=== PATIENT | female | born 1945 | race Caucasian/White ===

== ENCOUNTER → 2023-09-20 14:21 | Outpatient (REF) | payer MEDICARE, OTHER, SELFPAY | LOC: RAD 14:21 | PROVIDERS: ATTENDING PHYSICIAN Nurse Practitioner; FAMILY PHYSICIAN Student in an Organized Health Care Education/Training Program | DX: N28.1 Cyst of kidney, acquired (principal) | CPT/HCPCS: 76770 ==

== ENCOUNTER 2024-03-24 07:47 | Emergency (ER) | payer MEDICARE, OTHER, SELFPAY ==
[2024-03-24] VITALS (7 sets, daily range): BP systolic 116–174; BP diastolic 46–100; BMI 43.2
[2024-03-24 08:12] LABS: % Basophils 0.7 % (0-2); % Eosinophils 2.2 % (0-6); % Immature Granulocytes 0.6 % (0-0.5); % Lymphocytes 31.9 % (20.5-51.1); % Monocytes 6.1 % (1.7-9.3); % Neutrophils 58.5 % (42.2-75.2); Absolute Basophils 0.1 10^3/uL (0-0.2); Absolute Eosinophils 0.2 10^3/uL (0-0.7); Absolute Lymphocytes 2.2 10^3/uL (1.2-3.4); Absolute Monocytes 0.4 10^3/uL (0.1-0.6); Hematocrit 34.5 % (37.0-47.0); Hemoglobin 11.1 g/dL (12.0-16.0); Mean Corp Hgb Conc. 32.2 g/dL (33.0-37.0); Mean Corpuscular Hgb 28.5 pg (27.0-31.0); Mean Corpuscular Volume 88.7 fL (81.0-99.0); Mean Platelet Volume 9.1 fL (7.4-10.4); Nucleated Red Blood Cells % 0 %; Platelet Count 220 10^3/uL (130-400); Red Blood Cell Count 3.89 10^6/uL (4.20-5.40); White Blood Cell Count 6.9 10^3/uL (4.8-10.8)
[2024-03-24 08:33] LABS: ALT (SGPT) 17 U/L (0-35); AST (SGOT) 23 U/L (14-36); Albumin 4.5 g/dl (3.5-5.0); Alkaline Phosphatase 65 U/L (38-126); Blood Urea Nitrogen 40 mg/dl (7-17); Calcium 10.2 mg/dl (8.4-10.2); Carbon Dioxide 22 mmol/L (22-30); Chloride 106 mmol/L (98-107); Glucose 198 mg/dl (70-99); Potassium 5.3 mmol/L (3.5-5.1); Sodium 142 mmol/L (135-145); Total Bilirubin 0.3 mg/dl (0.2-1.3); Total Protein 7.1 g/dl (6.3-8.2); eGFR 23.38
[2024-03-24 09:58] LABS: Urine Albumin Trace (Neg - Trace); Urine Bilirubin Negative (Negative); Urine Character Clear (Clear); Urine Color Yellow; Urine Glucose 1+ (Negative); Urine Ketone Negative (Negative); Urine Leukocyte Negative (Negative); Urine Nitrite Negative (Negative); Urine Occult Blood Negative (Negative); Urine Urobilinogen Negative (Neg - 1+)
[2024-03-24] MEDS: ZOFRAN 4 MG IV (10:08)
[2024-03-24] MEDS: DILAUDID 1 MG IV (10:08)
[2024-03-24] MEDS: NSS 500 IV (10:09)
--- NOTE | 2024-03-24 10:22 | ED.GENMED ---
History of Present Illness
General
Chief Complaint: Flank Pain
Source: patient and spouse
Exam Limitations: none
Time Seen by Provider: 03/24/24 08:56
Nursing documentation reviewed up to this point in time: agreed with
History of Present Illness
History of Present Illness:
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
in [place] they never matured apparently never required dialysis she takes tramadol smokes marijuana for her pain, said no fever she did have some nausea and vomiting, no fevers, no hematuria
Past History
Past History
ED Past Medical History: HTN, NIDDM, Renal failure and Other (Chronic renal disease)
ED Past Surgical History: Cholecystectomy
Social History
Tobacco: Non-smoker
Alcohol: None
Drug: Marijuana
Personal:
Living: with family
Employment: Retired
Review of Systems
Review of Systems
All Other Systems: Not applicable
Constitutional: Denies fever or fatigue
ABD/GI: Reports nausea
: Reports flank pain
Phy Exam
Physical Exam
Physical Exam:
Physical Exam
General: no apparent distress, not acutely ill
Neck: No jaundice
Heart: s1/s2 regular rate and rhythm, no murmur. equal radial pulses.
Lungs: no acute respiratory distress. clear bilaterally
Abdomen: Soft obese nontender mild right CVA tenderness
Neuro: alert and oriented. no focal neurological deficits
Skin: no rash
Psychiatric: well kept. interactive and cooperative
Extremities: no edema.
Course
Orders/Labs/Results
Orders:
Orders
03/24/24 08:04
CBC/With Diff [Complete Blood Count/With Diff] Urgent
Comprehensive Metabolic Panel Urgent
03/24/24 08:18
CT Abd/pel Without Iv Or Oral Urgent
Comment:
Reason For Exam: left flank pain
03/24/24 09:30
Urinalysis Reflex To Culture Urgent
Date Specimen was Collected: 03/24/24
Time Specimen was Collected: 09:26
03/24/24 09:56
0.9% Sodium Chloride 500 ml [Nss] 500 ml IV BOLUS
HYDROmorphone [Dilaudid] 1 mg IV NOW STA
Ondansetron Injectable [Zofran] 4 mg IV NOW STA
03/24/24 10:57
Diphenhydramine [Benadryl] 50 mg .ROUTE .STK-MED ONE
03/24/24 11:00
Diphenhydramine [Benadryl] 25 mg IV NOW STA
Abnormal Lab Results
03/24/24 03/24/24
08:04 09:30
RBC 3.89 L 10^6/uL
(4.20-5.40)
Hgb 11.1 L g/dL
(12.0-16.0)
Hct 34.5 L %
(37.0-47.0)
MCHC 32.2 L g/dL
(33.0-37.0)
RDW 16.0 H %
(11.5-14.5)
Immature Gran % 0.6 H %
(0-0.5)
Potassium 5.3 H mmol/L
(3.5-5.1)
BUN 40 H mg/dl
(7-17)
Creatinine 2.1 H mg/dL
(0.6-1.0)
Glucose 198 H mg/dl
(70-99)
Urine Glucose 1+ A
(Negative)
03/24/24 08:04
03/24/24 08:04
Vital Signs
Initial and Last Documented VS:
Initial Vital Signs
Temp Pulse Resp BP Pulse Ox
98 F 71 16 138/100 98
03/24/24 07:51 03/24/24 07:51 03/24/24 07:51 03/24/24 07:51 03/24/24 07:51
Last Documented Vital Signs
Temp Pulse Resp BP Pulse Ox
98 F 65 16 131/69 96
03/24/24 07:51 03/24/24 10:00 03/24/24 10:00 03/24/24 12:00 03/24/24 11:23
*Radiology
Radiology exam reviewed: radiology read reviewed
*Pulse Oximetry
Patient hypoxic: no
*Home Health Manager Interpretation
Rate: normal
Interpretation: normal
Heart Rate: 78
Rhythm: sinus
*Critical Care Note
Total Time (30-74mins, 75-104mins- exclusive of procedures): Not Applicable
Update Note
Update Note:
Update, chronic right flank pain chronic renal sufficiency has had kidney stones, CT noted labs are noted creatinine at the baseline will check urinalysis trigger comfortable obviously no NSAIDs
1230 patient feeling better resting comfortably
ED Attending Note
-
Portions of this chart may have been created with voice recognition software.� Occasional wrong word or��sound alike� substitutions may have occurred due to the inherent limitations of voice recognition software.
Discharge Plan
Departure
Patient Disposition: Home (Routine Discharge)
Date of Disposition: 03/24/24
Time of Disposition: 12:33
Patient with high blood pressure during this ER visit?: No
Condition: Good
Discharge Problem:
CKD (chronic kidney disease), stage IV
Instructions: Flank Pain (DC)
Prescriptions:
New
ondansetron 4 mg tablet,disintegrating
4 mg PO Q8H PRN (Reason: nausea and vomiting) Qty: 14 0RF
No Action
tramadol 50 MG tablet
50 mg PO BID
famotidine 20 MG tablet
20 mg PO DAILY
nitroglycerin 0.4 MG tablet, sublingual
0.4 mg sublingual [id number] PRN (Reason: chest pain)
azelastine 1 SPRAY aerosol,spray
2 spray intranasal BIDPRN PRN (Reason: allergies,congstion)
albuterol sulfate [Ventolin HFA] 90 MCG/PUFF HFA aerosol inhaler
2 puff inhalation Q4HPRN PRN (Reason: wheezing)
loratadine 10 MG tablet
10 mg PO DAILYPRN PRN (Reason: allergies)
liraglutide [Victoza 2-Bud] 0.6 MG/0.1 ML pen injector
1.8 mg SQ DAILY
cyanocobalamin (vitamin B-12) 2,500 MCG tablet
5,000 unit PO DAILY
levothyroxine 137 MCG tablet
137 mcg PO DAILY
bumetanide 2 MG tablet
2 mg PO DAILY
amlodipine 5 MG tablet
5 mg PO DAILY
bisoprolol fumarate 10 MG tablet
10 mg PO DAILY
ropinirole 2 MG tablet
2 mg PO HS
rosuvastatin 20 MG tablet
20 mg PO DAILY
cholecalciferol (vitamin D3) 2,000 UNITS tablet
2,000 units PO DAILY
folic acid 1 MG tablet
1 mg PO DAILY
acetaminophen 325 MG tablet
650 mg PO Q6HPRN PRN (Reason: mild pain/ fever>100.5F) 0RF
ipratropium-albuterol 3 ML solution for nebulization
3 ml inhalation R Q4HPRN PRN (Reason: shortness of breath) 0RF
meropenem 500 MG/10 ML recon soln
500 mg IV Q8H 10 Days Qty: 30 0RF
Rx Instructions:
through 02/25/19 per Infectious Disease
insulin aspart U-100 [Novolog FlexPen U-100 Insulin] 300 UNITS/3 ML insulin pen
4 units SC AC 0RF
insulin detemir U-100 [Levemir U-100 Insulin] 1,000 UNITS/10 ML solution
20 units SC BID@0800,2000 0RF
Referrals:
Racquel Srivastava MD [Family Provider] - Next open appointment
Activity Restrictions/Additional Instructions:
Tylenol or tramadol for pain
Zofran as needed for nausea vomiting
Return to the ER for worsening symptoms
Interventions
Interventions:
*Risk Screen - Suicide Last Done: 03/24/24 07:51
*General Assessment Last Done: 03/24/24 07:51
*Neglect/Abuse Screening Last Done: 03/24/24 07:51
ED- Fall Risk Assessment Last Done: 03/24/24 09:53
*ED COVID-19 Vaccine History Last Done: 03/24/24 09:01
*Nursing Disposition Last Done: 03/24/24 12:56
CA-Vswyeb-Dboflibmgs Assessment Last Done: 03/24/24 09:02
ED-Female Genitourinary Assessment Last Done: 03/24/24 09:50
Discharge Date and Time
Discharge Date/Time: 03/24/24 12:57
Print Language: LIBERIAN
[2024-03-24] MEDS: BENADRYL 25 MG IV (11:01)
== END 2024-03-24 12:57 | disposition home or self-care (01) ==
LOC: EMR 07:47
PROVIDERS: Emergency Medicine; EMERGENCY PHYSICIAN Emergency Medicine; FAMILY PHYSICIAN Student in an Organized Health Care Education/Training Program
DX: R10.9 Unspecified abdominal pain (principal); R11.2 Nausea with vomiting, unspecified; I12.9 Hypertensive chronic kidney disease with stage 1 through stage 4 chronic kidney disease, or unspecified chronic kidney disease; E11.22 Type 2 diabetes mellitus with diabetic chronic kidney disease; N18.4 Chronic kidney disease, stage 4 (severe); Z90.49 Acquired absence of other specified parts of digestive tract
CPT/HCPCS: 99284; 96374; 96375; 96361; 74176; 80053; 81003; 85025

== ENCOUNTER 2024-07-28 07:29 | Outpatient (RCR) | payer MEDICARE, OTHER, SELFPAY | END 2024-07-28 23:59 | disposition home or self-care (01) | LOC: RPT 07:29 | PROVIDERS: ATTENDING PHYSICIAN Nurse Practitioner; FAMILY PHYSICIAN Student in an Organized Health Care Education/Training Program | DX: N81.2 Incomplete uterovaginal prolapse (principal); N81.6 Rectocele; N39.41 Urge incontinence; R35.0 Frequency of micturition; Z73.6 Limitation of activities due to disability; N39.46 Mixed incontinence; M54.50 Low back pain, unspecified; R26.89 Other abnormalities of gait and mobility; Z87.442 Personal history of urinary calculi | CPT/HCPCS: 97163; 97530 ==

== ENCOUNTER 2024-08-08 23:47 | Inpatient (IN) | payer MEDICARE, OTHER, SELFPAY ==
[2024-08-08] VITALS (7 sets, daily range): BP systolic 124–168; BP diastolic 65–84; BMI 39.4
--- NOTE | 2024-08-08 16:52 | ED.GENMED ---
ED Provider Triage
<Clinton Kirkpatrick PA-C - Last Filed: 08/08/24 16:54>
-
Patient seen by provider in Triage?: Seen in Triage
Attestation: A medical screening examination has been initiated by a qualified medical provider. Based on the assessment performed at this time, it has been determined that an emergent medical condition may exist and the patient has been informed
that further medical evaluation and possible additional diagnostic testing may be needed.
HPI: 78-year-old female presents to the emergency department for evaluation of 'pain all over' as well as hyperglycemia noted at urgent care today. She apparently has been fatigued recently and reports this pain all over has been ongoing for the
past 2+ months. Has declined to seek out any primary care evaluations for this. Denies chest pain or difficulty breathing
GENERAL: Alert , in no apparent distress
EYE: No visual abnormalities.
NECK: Trachea midline
ENT: No visible abnormalities.
LUNGS: No acute respiratory distress
NEUROLOGICAL: Alert and oriented
SKIN: Skin intact. No visible changes.
MUSCULOSKELETAL: Moving extremities normally
PSYCH: Normal and appropriate interaction.
This is a medical evaluation conducted in person to initiate diagnostic evaluation and provide initial therapeutics. Please see further documentation by the treating clinician.
History of Present Illness
<Clinton Kirkpatrick PA-C - Last Filed: 08/08/24 16:54>
General
Chief Complaint: Blood Sugar Problem
Time Seen by Provider: 08/08/24 19:46
<Mingo Sloan DO - Last Filed: 08/08/24 23:07>
General
Source: patient
Exam Limitations: none
Nursing documentation reviewed up to this point in time: agreed with
History of Present Illness
History of Present Illness:
Agree with HPI by Michele Kirkpatrick.
Past History
<Clinton Kirkpatrick PA-C - Last Filed: 08/08/24 16:54>
Past History
ED Past Medical History: HTN, NIDDM, Renal failure and Other (Chronic renal disease)
ED Past Surgical History: Cholecystectomy
Social History
Tobacco: Non-smoker
Alcohol: None
Drug: Marijuana
Personal:
Living: with family
Employment: Retired
Review of Systems
<Mingo Sloan DO - Last Filed: 08/08/24 23:07>
Review of Systems
Allergies reviewed?: Yes
All Other Systems: Not applicable
Constitutional: Reports no symptoms
EENT: Reports no symptoms
Respiratory: Reports no symptoms
Cardiac: Reports no symptoms
ABD/GI: Reports no symptoms
: Reports flank pain
Musculoskeletal: Reports no symptoms
Skin: Reports no symptoms
Neurological: Reports no symptoms
Endocrine: Reports no symptoms
Hematologic/Lymphatic: Reports no symptoms
Psychiatric: Reports no symptoms
Phy Exam
<Mingo Sloan DO - Last Filed: 08/08/24 23:07>
Physical Exam
Physical Exam:
Physical Exam
General: afebrile, obese
Neck: supple. no meningeal signs. normal posterior pharynx
Heart: s1/s2 tachycardia, no murmur. equal radial
pulses.
HEENT: Pupils equal round reactive to light, EOMI
Lungs: no acute respiratory distress. left side rhonchi
Abdomen: normal bowel sounds. not tender. no CVAT
Neuro: alert and oriented. no focal neurological deficits cranial nerves II through XII intact
Skin: no rash
Psychiatric: well kept. interactive and cooperative
Extremities: no edema. no calf tenderness. negative homans. good distal pulses
Course
<Clinton Kirkpatrick PA-C - Last Filed: 08/08/24 16:54>
Orders/Labs/Results
Orders:
Orders
08/08/24 17:10
B-Hydroxybutyrate Urgent
Comment: ADDON
Complete Blood Count/With Diff Urgent
Comprehensive Metabolic Panel Urgent
Urinalysis Reflex To Culture Urgent
Date Specimen was Collected: 08/08/24
Time Specimen was Collected: 17:03
Urine Microscopic Reflex Cult Urgent
Venous Blood Gas Urgent
%Oxygen/Room Air: 97
08/08/24 19:48
Add On- LAB Urgent
Tests Added?: B-hydroxybutyrate
08/08/24 20:13
0.9% Sodium Chloride 500 ml [Nss] 500 ml IV BOLUS
08/08/24 20:14
CT Abd/pel Without Iv Or Oral Urgent
Comment:
Reason For Exam: bilateral flank pain
08/08/24 21:53
Bedside Glucose- Treatment ONCE
08/08/24 21:57
Basic Metabolic Panel Urgent
08/08/24 22:38
CR Chest - 2 Views Urgent
Comment:
Reason For Exam: chills
08/08/24 22:45
Blood Culture Q30M
WHITNEY Source: Blood/Venous
Specimen Description:
Insulin Human Regular [Novolin R] 6 units IV NOW STA
08/08/24 22:51
Basic Metabolic Panel Urgent
Blood Culture Q30M
WHITNEY Source: Blood/Venous
Specimen Description:
Abnormal Lab Results
08/08/24
17:10
WBC 13.6 H 10^3/uL
(4.8-10.8)
RBC 4.18 L 10^6/uL
(4.20-5.40)
Hgb 10.1 L g/dL
(12.0-16.0)
Hct 34.3 L %
(37.0-47.0)
MCH 24.2 L pg
(27.0-31.0)
MCHC 29.4 L g/dL
(33.0-37.0)
RDW 16.2 H %
(11.5-14.5)
Abs Immat Gran (auto) 0.1 H 10^3/uL
(0-0.05)
Absolute Neuts (auto) 10.5 H 10^3/uL
(1.4-6.5)
Absolute Monos (auto) 0.8 H 10^3/uL
(0.1-0.6)
Neutrophils % 76.7 H %
(42.2-75.2)
Lymphocytes % 16.1 L %
(20.5-51.1)
VBG pH 7.29 L
(7.32-7.43)
VBG HCO3 21.6 L mmol/L
(22-27)
Carbon Dioxide 16 L mmol/L
(22-30)
BUN 35 H mg/dl
(7-17)
Creatinine 1.7 H mg/dL
(0.6-1.0)
Glucose 300 H mg/dl
(70-99)
Urine Bacteria (Reflex) Few A
(Negative)
Urine Glucose 4+ A
(Negative)
Urine Albumin (Reflex) 2+ A
(Neg - Trace)
B-Hydroxybutyrate 0.49 H mmol/L
(0.02-0.27)
08/08/24 17:10
Vital Signs
Initial and Last Documented VS:
Initial Vital Signs
Temp Pulse Resp BP Pulse Ox
97.3 F 103 18 124/75 99
08/08/24 16:49 08/08/24 16:49 08/08/24 16:49 08/08/24 16:49 08/08/24 16:49
Last Documented Vital Signs
Temp Pulse Resp BP Pulse Ox
98.9 F 91 20 165/76 99
08/08/24 21:55 08/08/24 22:35 08/08/24 22:35 08/08/24 22:35 08/08/24 22:35
<Mingo Sloan, DO - Last Filed: 08/08/24 23:07>
Orders/Labs/Results
Orders:
Orders
08/08/24 17:10
B-Hydroxybutyrate Urgent
Comment: ADDON
Complete Blood Count/With Diff Urgent
Comprehensive Metabolic Panel Urgent
Urinalysis Reflex To Culture Urgent
Date Specimen was Collected: 08/08/24
Time Specimen was Collected: 17:03
Urine Microscopic Reflex Cult Urgent
Venous Blood Gas Urgent
%Oxygen/Room Air: 97
08/08/24 19:48
Add On- LAB Urgent
Tests Added?: B-hydroxybutyrate
08/08/24 20:13
0.9% Sodium Chloride 500 ml [Nss] 500 ml IV BOLUS
08/08/24 20:14
CT Abd/pel Without Iv Or Oral Urgent
Comment:
Reason For Exam: bilateral flank pain
08/08/24 21:53
Bedside Glucose- Treatment ONCE
08/08/24 21:57
Basic Metabolic Panel Urgent
08/08/24 22:38
CR Chest - 2 Views Urgent
Comment:
Reason For Exam: chills
08/08/24 22:45
Blood Culture Q30M
WHITNEY Source: Blood/Venous
Specimen Description:
Insulin Human Regular [Novolin R] 6 units IV NOW STA
08/08/24 22:51
Basic Metabolic Panel Urgent
Blood Culture Q30M
WHITNEY Source: Blood/Venous
Specimen Description:
Abnormal Lab Results
08/08/24
17:10
WBC 13.6 H 10^3/uL
(4.8-10.8)
RBC 4.18 L 10^6/uL
(4.20-5.40)
Hgb 10.1 L g/dL
(12.0-16.0)
Hct 34.3 L %
(37.0-47.0)
MCH 24.2 L pg
(27.0-31.0)
MCHC 29.4 L g/dL
(33.0-37.0)
RDW 16.2 H %
(11.5-14.5)
Abs Immat Gran (auto) 0.1 H 10^3/uL
(0-0.05)
Absolute Neuts (auto) 10.5 H 10^3/uL
(1.4-6.5)
Absolute Monos (auto) 0.8 H 10^3/uL
(0.1-0.6)
Neutrophils % 76.7 H %
(42.2-75.2)
Lymphocytes % 16.1 L %
(20.5-51.1)
VBG pH 7.29 L
(7.32-7.43)
VBG HCO3 21.6 L mmol/L
(22-27)
Carbon Dioxide 16 L mmol/L
(22-30)
BUN 35 H mg/dl
(7-17)
Creatinine 1.7 H mg/dL
(0.6-1.0)
Glucose 300 H mg/dl
(70-99)
Urine Bacteria (Reflex) Few A
(Negative)
Urine Glucose 4+ A
(Negative)
Urine Albumin (Reflex) 2+ A
(Neg - Trace)
B-Hydroxybutyrate 0.49 H mmol/L
(0.02-0.27)
08/08/24 17:10
Vital Signs
Initial and Last Documented VS:
Initial Vital Signs
Temp Pulse Resp BP Pulse Ox
97.3 F 103 18 124/75 99
08/08/24 16:49 08/08/24 16:49 08/08/24 16:49 08/08/24 16:49 08/08/24 16:49
Last Documented Vital Signs
Temp Pulse Resp BP Pulse Ox
98.9 F 91 20 165/76 99
08/08/24 21:55 08/08/24 22:35 08/08/24 22:35 08/08/24 22:35 08/08/24 22:35
<Mingo Sloan DO - Last Filed: 08/08/24 23:07>
MDM/Problems Addressed
Differential Diagnosis Includes:
Pneumonia, CHF
MDM/Problems Addressed:
78-year-old female with mild DKA, pneumonia. IV fluids given, insulin given,
Chronic conditions affecting care: DM and Asthma
Acute Exacerbation and/or Progression of Chronic Illness: DM
<Mingo Sloan DO - Last Filed: 08/08/24 23:07>
*Radiology
Radiology exam reviewed: radiology read reviewed (CT abdomen pelvis acute intra-abdominal findings, left-sided pneumonia)
*Pulse Oximetry
Patient hypoxic: no
*Script Writer Interpretation
Rate: tachycardiac
Interpretation: abnormal
Heart Rate: 102
Rhythm: sinus tachycardia
*Critical Care Note
Total Time (30-74mins, 75-104mins- exclusive of procedures): Not Applicable
Data Reviewed
Review of Other/Old Records Reveals: Labs
<Mingo Sloan DO - Last Filed: 08/08/24 23:07>
Patient Management
Social determinants of health affecting care: Living situation and Strong social support
Discussion with other providers: Hospitalist
Escalation/DeEscalation of care consider admission/obs:
Admit indicated
ED Attending Note
<Clinton Kirkpatrick PA-C - Last Filed: 08/08/24 16:54>
-
Portions of this chart may have been created with voice recognition software.� Occasional wrong word or��sound alike� substitutions may have occurred due to the inherent limitations of voice recognition software.
Discharge Plan
Departure
Patient Disposition: Admit
Date of Disposition: 08/08/24
Time of Disposition: 22:41
Admit to: Telemetry
Presentation/result/management discussed w/ accepting MD/DO: Hospitalist
Patient with high blood pressure during this ER visit?: Yes
Condition: Good
Discharge Problem:
Pneumonia, DKA (diabetic ketoacidoses), Chronic renal insufficiency
Prescriptions:
No Action
tramadol 50 MG tablet
50 mg PO BID
famotidine 20 MG tablet
20 mg PO DAILY
nitroglycerin 0.4 MG tablet, sublingual
0.4 mg sublingual [id number] PRN (Reason: chest pain)
azelastine 1 SPRAY aerosol,spray
2 spray intranasal BIDPRN PRN (Reason: allergies,congstion)
albuterol sulfate [Ventolin HFA] 90 MCG/PUFF HFA aerosol inhaler
2 puff inhalation Q4HPRN PRN (Reason: wheezing)
loratadine 10 MG tablet
10 mg PO DAILYPRN PRN (Reason: allergies)
liraglutide [Victoza 2-Bud] 0.6 MG/0.1 ML pen injector
1.8 mg SQ DAILY
cyanocobalamin (vitamin B-12) 2,500 MCG tablet
5,000 unit PO DAILY
levothyroxine 137 MCG tablet
137 mcg PO DAILY
bumetanide 2 MG tablet
2 mg PO DAILY
amlodipine 5 MG tablet
5 mg PO DAILY
bisoprolol fumarate 10 MG tablet
10 mg PO DAILY
ropinirole 2 MG tablet
2 mg PO HS
rosuvastatin 20 MG tablet
20 mg PO DAILY
cholecalciferol (vitamin D3) 2,000 UNITS tablet
2,000 units PO DAILY
folic acid 1 MG tablet
1 mg PO DAILY
acetaminophen 325 MG tablet
650 mg PO Q6HPRN PRN (Reason: mild pain/ fever>100.5F) 0RF
ipratropium-albuterol 3 ML solution for nebulization
3 ml inhalation R Q4HPRN PRN (Reason: shortness of breath) 0RF
meropenem 500 MG/10 ML recon soln
500 mg IV Q8H 10 Days Qty: 30 0RF
Rx Instructions:
through 02/25/19 per Infectious Disease
insulin aspart U-100 [Novolog FlexPen U-100 Insulin] 300 UNITS/3 ML insulin pen
4 units SC AC 0RF
insulin detemir U-100 [Levemir U-100 Insulin] 1,000 UNITS/10 ML solution
20 units SC BID@0800,2000 0RF
ondansetron 4 mg tablet,disintegrating
4 mg PO Q8H PRN (Reason: nausea and vomiting) Qty: 14 0RF
Referrals:
Racquel Srivastava MD [Family Provider] -
Interventions
Interventions:
*Risk Screen - Suicide Last Done: 08/08/24 16:49
*General Assessment Last Done: 08/08/24 16:49
*Neglect/Abuse Screening Last Done: 08/08/24 20:00
ED- Fall Risk Assessment Last Done: 08/08/24 20:00
*ED COVID-19 Vaccine History Last Done: 08/08/24 16:49
ED- Neurological Assessment Last Done: 08/08/24 20:00
Discharge Date and Time
Print Language: URUGUAYAN
[2024-08-08 17:19] LABS: Urine Albumin 2+ (Neg - Trace); Urine Bilirubin Negative (Negative); Urine Character Slightly Cloudy (Clear); Urine Color Yellow; Urine Glucose 4+ (Negative); Urine Ketone Negative (Negative); Urine Leukocyte Negative (Negative); Urine Nitrite Negative (Negative); Urine Occult Blood Negative (Negative); Urine Specific Gravity 1.015 (<1.030); Urine Urobilinogen Negative (Neg - 1+)
[2024-08-08 17:20] LABS: % Basophils 0.5 % (0-2); % Eosinophils 0.7 % (0-6); % Immature Granulocytes 0.4 % (0-0.5); % Lymphocytes 16.1 % (20.5-51.1); % Monocytes 5.6 % (1.7-9.3); % Neutrophils 76.7 % (42.2-75.2); Absolute Basophils 0.1 10^3/uL (0-0.2); Absolute Eosinophils 0.1 10^3/uL (0-0.7); Absolute Immature Granulocytes 0.1 10^3/uL (0-0.05); Absolute Lymphocytes 2.2 10^3/uL (1.2-3.4); Absolute Monocytes 0.8 10^3/uL (0.1-0.6); Absolute Neutrophils 10.5 10^3/uL (1.4-6.5); Hematocrit 34.3 % (37.0-47.0); Hemoglobin 10.1 g/dL (12.0-16.0); Mean Corp Hgb Conc. 29.4 g/dL (33.0-37.0); Mean Corpuscular Hgb 24.2 pg (27.0-31.0); Mean Corpuscular Volume 82.1 fL (81.0-99.0); Mean Platelet Volume 8.8 fL (7.4-10.4); Nucleated Red Blood Cells % 0 %; Platelet Count 356 10^3/uL (130-400); Red Blood Cell Count 4.18 10^6/uL (4.20-5.40); Red Cell Dist. Width 16.2 % (11.5-14.5); White Blood Cell Count 13.6 10^3/uL (4.8-10.8)
[2024-08-08 17:24] LABS: Venous Blood Gas B.E. -4.9 mmol/L (-4 to +4); Venous Blood Gas HCO3 21.6 mmol/L (22-27); Venous Blood Gas O2 Sat % 54.5 %; Venous Blood Gas pCO2 45 mmHg (35-48); Venous Blood Gas pH 7.29 (7.32-7.43); Venous Blood Gas pO2 35 mmHg (30-50)
[2024-08-08 17:26] LABS: Urine Bacteria Few (Negative); Urine Red Blood Cell 0-2 /HPF (0-2); Urine White Cell 0-2 /HPF (0-5)
[2024-08-08 17:32] LABS: ALT (SGPT) 19 U/L (0-35); AST (SGOT) 21 U/L (14-36); Alkaline Phosphatase 102 U/L (38-126); Blood Urea Nitrogen 35 mg/dl (7-17); Calcium 9.7 mg/dl (8.4-10.2); Carbon Dioxide 16 mmol/L (22-30); Chloride 103 mmol/L (98-107); Glucose 300 mg/dl (70-99); Potassium 4.9 mmol/L (3.5-5.1); Sodium 137 mmol/L (135-145); Total Bilirubin 0.6 mg/dl (0.2-1.3); Total Protein 7.6 g/dl (6.3-8.2); eGFR 30.13
[2024-08-08] MEDS: NSS 500 IV (20:31)
[2024-08-08 20:59] LABS: B-Hydroxybutyrate 0.49 mmol/L (0.02-0.27)
[2024-08-08 23:14] LABS: Blood Urea Nitrogen 34 mg/dl (7-17); Calcium 9.2 mg/dl (8.4-10.2); Carbon Dioxide 21 mmol/L (22-30); Chloride 107 mmol/L (98-107); Estimated Creatinine Clearance 29 ml/min; Glucose 167 mg/dl (70-99); Potassium 4.4 mmol/L (3.5-5.1); Sodium 136 mmol/L (135-145); eGFR 30.13
[2024-08-08 23:41] LABS: Glucose - Point of Care 176 mg/dl (70-99)
[2024-08-08] MEDS: ROCEPHIN 1000 MG IV (23:47)
--- NOTE | 2024-08-08 23:49 | HPS.HSE ---
Family Physician
-
Family Physician: Racquel Srivastava MD
Chief Complaint
-
flank pain
History of Present Illness
78-year-old female past medical history of morbid obesity, diabetes, CKD, asthma, osteoporosis, hyperlipidemia, hypertension, hypothyroidism, restless leg syndrome, presenting with bilateral flank pain ongoing for the past week. She is also having
abdominal pain. Feels chills but no fever. She passed a kidney stone today. Denies any chest pain or shortness of breath or cough. Denies any urinary symptoms.
She also been complaining of pain around her left first big toe radiating around the arch to her heel.
Patient has not been taking her insulin regularly because sometimes she wakes up late.
She denies smoking or alcohol use.
Medical History
Past Medical History
Past Medical History: Reports Other (morbid obesity, diabetes, CKD, asthma, osteoporosis, hyperlipidemia, hypertension, hypothyroidism, restless leg syndrome,)
Past Surgical History: Reports None
Social History
Tobacco: Non-smoker
Alcohol: None
Drug: None
Family History
Family History: Not pertinent
Allergies / Home Medications
Allergies reflects when Allergies were last updated in [employer].
Home Medications with original date entered in [employer]
Allergy/Medication List:
Allergies
Allergy/AdvReac Type Severity Reaction Status Date / Time
morphine Allergy red Verified 08/08/24 16:55
flushing,
itchy
penicillin V Allergy Rash; Verified 08/08/24 16:55
TOLERATED
CEFAZOLIN
01/30
potassium Allergy Unknown Verified 08/08/24 16:55
Home Medications
albuterol sulfate 90 mcg/actuation aerosol inhaler (Ventolin HFA) 2 puff inhalation Q4HPRN PRN wheezing 02/06/19
amlodipine 5 mg tablet 5 mg PO DAILY 02/06/19
bumetanide 2 mg tablet 1 mg PO DAILY 02/06/19
cholecalciferol (vitamin D3) 50 mcg (2,000 unit) tablet 2,000 units PO DAILY 02/06/19
levothyroxine 137 mcg tablet 137 mcg PO DAILY 02/06/19
nitroglycerin 0.4 mg sublingual tablet 0.4 mg sublingual [id number] PRN chest pain 02/06/19
ropinirole 2 mg tablet 2 mg PO HS 02/06/19
rosuvastatin 20 mg tablet 20 mg PO DAILY 02/06/19
tramadol 50 mg tablet 50 mg PO TID 02/06/19
acetaminophen 650 mg tablet,extended release 1,300 mg PO TID 08/08/24
cyanocobalamin (vitamin B-12) 1,000 mcg tablet 1,000 mcg PO DAILY 08/08/24
dapagliflozin propanediol 10 mg tablet (Farxiga) 10 mg PO DAILY 08/08/24
diclofenac sodium 1 % topical gel 2 g topical DAILYPRN PRN back 08/08/24
duloxetine 20 mg capsule,delayed release 20 mg PO DAILY 08/08/24
fluconazole 100 mg tablet 100 mg PO DAILY 08/08/24
insulin glargine 100 unit/mL (3 mL) subcutaneous pen (Basaglar KwikPen U-100 Insulin) 44 unit SC BID 08/08/24
insulin lispro 100 unit/mL subcutaneous solution (Humalog U-100 Insulin) 1 sliding scale dose SC AC 08/08/24
lidocaine 4 % topical patch 4 patch topical HS 08/08/24
lisinopril 40 mg tablet 40 mg PO DAILY 08/08/24
ondansetron 4 mg disintegrating tablet 4 mg PO Q8HPRN PRN nausea and vomiting 08/08/24
paricalcitol 2 mcg capsule 2 mcg PO DAILY 08/08/24
tamsulosin 0.4 mg capsule 0.4 mg PO DAILY 08/08/24
vitamins A,C,[id number] 4,296 mcg-226 mg-90 mg capsule (PreserVision AREDS) 1 cap PO DAILY 08/08/24
Review of Systems
-
History Source: Patient
A 12 point ROS was completed and negative except as noted: Yes
Constitutional: Reports No Symptoms
EENT: Reports No Symptoms
Respiratory: Reports No Symptoms
Cardiac: Reports No Symptoms
Abdomen/GI: Reports See HPI
: Reports No Symptoms
Musculoskeletal: Reports No Symptoms
Skin: Reports No Symptoms
Neurological: Reports No Symptoms
Endocrine: Reports No Symptoms
Hematologic/Lymphatic: Reports No Symptoms
Psych: Reports No Symptoms
Physical Exam
Vital Signs
Vital Signs
Temp Pulse Resp BP Pulse Ox
98.9 F 91 20 165/76 99
08/08/24 21:55 08/08/24 22:35 08/08/24 22:35 08/08/24 22:35 08/08/24 22:35
Physical Exam
General: Well Developed, Well Nourished and No Apparent Distress
HEENT: NormoCephalic, Moist mucous membranes and Atraumatic
Respiratory: Clear
Cardiac: S1/S2 and Regular Rhythm; No Murmur or Rub
GI: Soft, Non Tender, Non Distended and Normal Bowel Sounds; No Organomegaly
Rectal: Deferred by Provider
Musculoskeletal: No Clubbing, No Cyanosis and No Edema
Skin: No Rash
Neuro: Nonfocal/grossly intact
Laboratory Results
-
08/08/24 17:10
08/08/24 22:51
Laboratory Results
Total Bilirubin 0.6 mg/dl (0.2-1.3) 08/08/24 17:10
AST 21 U/L (14-36) 08/08/24 17:10
ALT 19 U/L (0-35) 08/08/24 17:10
Alkaline Phosphatase 102 U/L (38-126) 08/08/24 17:10
Data Reviewed
-
Lab Data: Labs Reviewed by me
Old Records: Reviewed
Impression/Plan
-
IMPRESSION:
PLAN:
# Mild DKA secondary to missed insulin, unlikely to be related to dapagliflozin
# History of type 2 diabetes
-Blood sugar 300
-pH of 7.29
-Anion gap of 18, bicarb
-6 units of IV regular insulin was about to be given but blood sugar spontaneously improved to 167
-She did not take her daily insulin today, would resume her normal insulin of 44 units twice daily
-Insulin sliding scale
-Diabetic diet
# Left foot pain
-X-ray pending
# Back pain/flank pain
-Likely musculoskeletal since CT scan unremarkable
-Continue lidocaine patch
-Continue tramadol
#Pneumonitis/mild pneumonia of the left lower lobe
-No symptoms
-Leukocytosis
-Blood cultures pending
-Ceftriaxone/doxycycline
# Passed kidney stone
-Passed today
-Continue tamsulosin
# Incidentally discovered hepatic cirrhosis
-No prior history of alcohol use
-Does not take excessive Tylenol
Chronic kidney disease
-Renal function at baseline
-Continue Bumex
-Continue paricalcitol
Morbid obesity
Asthma
-Continue albuterol
Osteoporosis
Hyperlipidemia
-Continue statin
Essential hypertension
-Continue amlodipine
-Continue lisinopril
Hypothyroidism
-Continue levothyroxine
Restless leg syndrome
-Continue ropinirole
Antifungal therapy
-Only takes fluconazole as needed
Full code
DVT prophylaxis�heparin
N.p.o.
[2024-08-09] VITALS (11 sets, daily range): BP systolic 107–161; BP diastolic 53–79; BMI 38.4
[2024-08-09] MEDS: ZITHROMAX INFUSION 250 IV (00:01)
[2024-08-09] MEDS: ZOFRAN 4 MG IV (00:19)
[2024-08-09] MEDS: ULTRAM 50 MG PO ×4 (03:35→22:08)
[2024-08-09 06:15] LABS: Glucose - Point of Care 177 mg/dl (70-99)
[2024-08-09] MEDS: LANTUS 0.44 UNITS SC ×2 (06:22→20:21)
[2024-08-09] MEDS: SYNTHROID 137 MCG PO (06:22)
[2024-08-09] MEDS: VIBRAMYCIN 260 MG IV ×2 (06:23→17:26)
[2024-08-09 06:49] LABS: ALT (SGPT) 14 U/L (0-35); AST (SGOT) 16 U/L (14-36); Albumin 3.6 g/dl (3.5-5.0); Alkaline Phosphatase 84 U/L (38-126); Blood Urea Nitrogen 33 mg/dl (7-17); Calcium 9.1 mg/dl (8.4-10.2); Carbon Dioxide 22 mmol/L (22-30); Chloride 108 mmol/L (98-107); Estimated Creatinine Clearance 31 ml/min; Glucose 168 mg/dl (70-99); Potassium 4.6 mmol/L (3.5-5.1); Sodium 138 mmol/L (135-145); Total Bilirubin 0.3 mg/dl (0.2-1.3); Total Protein 6.1 g/dl (6.3-8.2)
[2024-08-09 07:37] LABS: % Basophils 0.5 % (0-2); % Eosinophils 0.6 % (0-6); % Immature Granulocytes 0.5 % (0-0.5); % Lymphocytes 22.2 % (20.5-51.1); % Monocytes 6.7 % (1.7-9.3); % Neutrophils 69.5 % (42.2-75.2); Absolute Eosinophils 0.1 10^3/uL (0-0.7); Absolute Lymphocytes 1.9 10^3/uL (1.2-3.4); Absolute Monocytes 0.6 10^3/uL (0.1-0.6); Hematocrit 28.6 % (37.0-47.0); Hemoglobin 8.3 g/dL (12.0-16.0); Mean Corpuscular Hgb 23.6 pg (27.0-31.0); Mean Corpuscular Volume 81.5 fL (81.0-99.0); Mean Platelet Volume 9.2 fL (7.4-10.4); Nucleated Red Blood Cells % 0 %; Platelet Count 215 10^3/uL (130-400); Red Blood Cell Count 3.51 10^6/uL (4.20-5.40); White Blood Cell Count 8.6 10^3/uL (4.8-10.8)
[2024-08-09 10:12] LABS: Glycohemoglobin (HgbA1c) 7.8 % (4.0-5.6)
[2024-08-09] MEDS: CRESTOR 10 MG PO (10:35)
[2024-08-09] MEDS: OCUVITE SOFTGEL 1 CAP PO (10:35)
[2024-08-09] MEDS: ZESTRIL 40 MG PO (10:36)
[2024-08-09] MEDS: BUMEX 1 MG PO (10:37)
[2024-08-09] MEDS: VITAMIN B-12 1000 MCG PO (10:38)
[2024-08-09] MEDS: VITAMIN D3 (cholecalciferol) 50 MCG PO (10:38)
[2024-08-09] MEDS: FLOMAX 0.4 MG PO (10:38)
[2024-08-09] MEDS: FARXIGA 10 MG PO (10:39)
[2024-08-09] MEDS: NORVASC 5 MG PO (10:39)
[2024-08-09] MEDS: HEPARIN 5000 UNITS SC ×2 (10:41→20:18)
[2024-08-09] MEDS: ZEMPLAR 2 MCG PO (10:55)
[2024-08-09] MEDS: NOVOLOG FLEXPEN-LOW RESISTANCE SC ×2 (10:55→11:59)
[2024-08-09] MEDS: CYMBALTA DELAYED RELEASE 20 MG PO (10:56)
[2024-08-09 11:18] LABS: Glucose - Point of Care 150 mg/dl (70-99)
[2024-08-09] MEDS: TYLENOL 650 MG PO ×3 (11:59→22:08)
--- NOTE | 2024-08-09 14:07 | W.PN.HOSP.TC ---
Today's Communication/Plan
-
f/u stool cultures
has hx of cdiff
Assessment / Plan
Assessment / Plan
Physical Exam
General: Well Developed, Well Nourished and No Apparent Distress
HEENT: NormoCephalic, Moist mucous membranes and Atraumatic
Respiratory: Clear
Cardiac: S1/S2 and Regular Rhythm; No Murmur or Rub
GI: Soft, Non Tender, Non Distended and Normal Bowel Sounds; No Organomegaly
Rectal: Deferred by Provider
Musculoskeletal: No Clubbing, No Cyanosis and No Edema
Skin: No Rash
Neuro: Nonfocal/grossly intact
#Abdominal Pain
-has diarrhea
-imaging unremarkable
-f/u stool cultures, c diff
# Left foot pain
unremarkable imaging
# Back pain/flank pain
-Likely musculoskeletal since CT scan unremarkable
-Continue lidocaine patch
-Continue tramadol
-has had recent passing of stone
#Pneumonitis/mild pneumonia of the left lower lobe
-No symptoms
-Leukocytosis
-Blood cultures pending
-Ceftriaxone/doxycycline for now
# Passed kidney stone
-Passed today
-Continue tamsulosin
# Incidentally discovered hepatic cirrhosis
-No prior history of alcohol use
-Does not take excessive Tylenol
# History of type 2 diabetes
-Insulin sliding scale
-Diabetic diet
Chronic kidney disease
-Renal function at baseline
-Continue Bumex
-Continue paricalcitol
Morbid obesity
Asthma
-Continue albuterol
Osteoporosis
Hyperlipidemia
-Continue statin
Essential hypertension
-Continue amlodipine
-Continue lisinopril
Hypothyroidism
-Continue levothyroxine
Restless leg syndrome
-Continue ropinirole
Antifungal therapy
-Only takes fluconazole as needed
Full code
DVT prophylaxis�heparin
Anticipated Discharge: 24 - 48 hours
Subjective/Interval History
-
Date of Service: August 09, 2024
having diarrhea
Objective Data
-
Labs:
Laboratory Results
08/09/24
06:05
WBC 8.6
Hgb 8.3 L
Hct 28.6 L
Plt Count 215 D
Sodium 138
Potassium 4.6
Chloride 108 H
Carbon Dioxide 22
BUN 33 H
Creatinine 1.6 H
Glucose 168 H
Calcium 9.1
Total Bilirubin 0.3
AST 16
ALT 14
Alkaline Phosphatase 84
Vital Signs:
Vital Signs
Temp Pulse Resp BP Pulse Ox
98.4 F 82 16 146/76 95
08/09/24 10:30 08/09/24 10:39 08/09/24 12:04 08/09/24 10:39 08/09/24 10:30
I&O
08/08/24 08/09/24 08/10/24
06:59 06:59 06:59
Output Total 200 / 200
Balance -200 / -200
Review of Systems
-
History Source: Patient
All other systems: Not reviewed unless documented
Data Reviewed
-
Diagnostic Radiology: Report Reviewed by me
CT Scan: Report Reviewed by me
Labs: Labs Reviewed by me
[2024-08-09 15:55] LABS: Glucose - Point of Care 229 mg/dl (70-99)
[2024-08-09] MEDS: NOVOLOG FLEXPEN-LOW RESISTANCE 2 UNITS SC (17:25)
[2024-08-09 20:26] LABS: Glucose - Point of Care 226 mg/dl (70-99)
[2024-08-09] MEDS: ROCEPHIN 1000 MG IV (21:55)
[2024-08-09] MEDS: REQUIP 2 MG PO (21:55)
[2024-08-09] MEDS: STERILE WATER FOR INJECTION 10 ML IV (21:56)
[2024-08-10] MEDS: VIBRAMYCIN 260 MG IV ×2 (05:06→17:31)
[2024-08-10] MEDS: SYNTHROID 137 MCG PO (05:07)
[2024-08-10 06:38] LABS: Hemoglobin 8.2 g/dL (12.0-16.0); Mean Corp Hgb Conc. 29.3 g/dL (33.0-37.0); Mean Corpuscular Hgb 23.6 pg (27.0-31.0); Mean Corpuscular Volume 80.5 fL (81.0-99.0); Mean Platelet Volume 9.4 fL (7.4-10.4); Platelet Count 195 10^3/uL (130-400); Red Blood Cell Count 3.48 10^6/uL (4.20-5.40)
[2024-08-10 07:26] LABS: ALT (SGPT) 12 U/L (0-35); AST (SGOT) 16 U/L (14-36); Alkaline Phosphatase 86 U/L (38-126); Blood Urea Nitrogen 28 mg/dl (7-17); Calcium 8.9 mg/dl (8.4-10.2); Carbon Dioxide 20 mmol/L (22-30); Chloride 107 mmol/L (98-107); Estimated Creatinine Clearance 32 ml/min; Glucose 130 mg/dl (70-99); Potassium 4.2 mmol/L (3.5-5.1); Sodium 138 mmol/L (135-145); Total Bilirubin 0.5 mg/dl (0.2-1.3); Total Protein 6.2 g/dl (6.3-8.2); eGFR 35.01
[2024-08-10 07:48] LABS: Glucose - Point of Care 149 mg/dl (70-99)
[2024-08-10 07:54] VITALS: BP 149/75
[2024-08-10] MEDS: LANTUS 0.44 UNITS SC (09:54)
[2024-08-10] MEDS: HEPARIN 5000 UNITS SC ×2 (09:55→21:56)
[2024-08-10] MEDS: ULTRAM 50 MG PO ×3 (09:58→22:24)
[2024-08-10] MEDS: ZEMPLAR 2 MCG PO (09:58)
[2024-08-10] MEDS: OCUVITE SOFTGEL 1 CAP PO (09:58)
[2024-08-10] MEDS: CYMBALTA DELAYED RELEASE 20 MG PO (09:58)
[2024-08-10] MEDS: NOVOLOG FLEXPEN-LOW RESISTANCE SC ×2 (09:58→17:30)
[2024-08-10] MEDS: FARXIGA 10 MG PO (09:59)
[2024-08-10] MEDS: CRESTOR 10 MG PO (09:59)
[2024-08-10] MEDS: NORVASC 5 MG PO (09:59)
[2024-08-10] MEDS: VITAMIN B-12 1000 MCG PO (09:59)
[2024-08-10] MEDS: TYLENOL 650 MG PO ×3 (09:59→21:58)
[2024-08-10] MEDS: FLOMAX 0.4 MG PO (09:59)
[2024-08-10] MEDS: VITAMIN D3 (cholecalciferol) 50 MCG PO (09:59)
[2024-08-10] MEDS: ZESTRIL 40 MG PO (09:59)
[2024-08-10] MEDS: BUMEX 1 MG PO (10:00)
[2024-08-10] MEDS: ZOFRAN ODT (ORALLY DISINTEGRATING) 4 MG PO ×2 (10:06→19:04)
[2024-08-10 11:02] LABS: Glucose - Point of Care 210 mg/dl (70-99)
--- NOTE | 2024-08-10 11:09 | CM ---
CM reviewed chart, patient seen bedside, initial assessment completed. Patient resides with her spouse in a two story home, one small step to enter. Patient bedroom on second floor, full flight upstairs, does have stair glide. Patient uses a walker
to ambulate at home. Patient reports VN in past, [facility] (5 years ago) in past. Patient PCP Racquel Srivastava, pharmacy [facility], confirms prescription coverage. Patient inquiring about private care for cleaning, household
chores, aware not covered through insurance, will provide resources to patient. CM will continue to follow for all discharge planning needs.
Plan; home with spouse, watch for VN needs.
[2024-08-10] MEDS: NOVOLOG FLEXPEN-LOW RESISTANCE 2 UNITS SC (12:41)
--- NOTE | 2024-08-10 14:47 | W.PN.HOSP.TC ---
Today's Communication/Plan
-
Norovirus follow-up
Assess tolerability of diet
Assessment / Plan
Assessment / Plan
Physical Exam
General: Well Developed, Well Nourished and No Apparent Distress
HEENT: NormoCephalic, Moist mucous membranes and Atraumatic
Respiratory: Clear
Cardiac: S1/S2 and Regular Rhythm; No Murmur or Rub
GI: Soft, Non Tender, Non Distended and Normal Bowel Sounds; No Organomegaly
Rectal: Deferred by Provider
Musculoskeletal: No Clubbing, No Cyanosis and No Edema
Skin: No Rash
Neuro: Nonfocal/grossly intact
#Abdominal Pain
#Nausea, vomiting
-has diarrhea, improving
-imaging unremarkable
-f/u stool cultures, c diff negative
�Symptomatic control
� Follow-up norovirus
� Can continue empiric antibiotics for now
# Left foot pain
unremarkable imaging
# Back pain/flank pain
-Likely musculoskeletal since CT scan unremarkable
-Continue lidocaine patch
-Continue tramadol
-has had recent passing of stone
#Pneumonitis/mild pneumonia of the left lower lobe
-No symptoms
-Leukocytosis
-Blood cultures pending
-Ceftriaxone/doxycycline for now
# Passed kidney stone
-Passed today
-Continue tamsulosin
# Incidentally discovered hepatic cirrhosis
-No prior history of alcohol use
� Probably secondary to liver disease
-Does not take excessive Tylenol
� Followed by [facility]
# History of type 2 diabetes
-Insulin sliding scale
-Diabetic diet
Chronic kidney disease
-Renal function at baseline
-Continue Bumex
-Continue paricalcitol
Morbid obesity
Asthma
-Continue albuterol
Osteoporosis
Hyperlipidemia
-Continue statin
Essential hypertension
-Continue amlodipine
-Continue lisinopril
Hypothyroidism
-Continue levothyroxine
Restless leg syndrome
-Continue ropinirole
Antifungal therapy
-Only takes fluconazole as needed
Full code
DVT prophylaxis�heparin
Anticipated Discharge: 24 - 48 hours
Subjective/Interval History
-
Date of Service: August 10, 2024
Mild nausea, assessing to see if she can tolerate diet today. Abdominal issues improving
Objective Data
-
Labs:
Laboratory Results
08/10/24
05:25
WBC 6.0
Hgb 8.2 L
Hct 28.0 L
Plt Count 195
Sodium 138
Potassium 4.2
Chloride 107
Carbon Dioxide 20 L
BUN 28 H
Creatinine 1.5 H
Glucose 130 H
Calcium 8.9
Total Bilirubin 0.5
AST 16
ALT 12
Alkaline Phosphatase 86
Vital Signs:
Vital Signs
Temp Pulse Resp BP Pulse Ox
97.4 F 85 18 149/75 98
08/10/24 07:54 08/10/24 07:54 08/10/24 07:54 08/10/24 07:54 08/10/24 07:54
I&O
08/09/24 08/10/24 08/11/24
06:59 06:59 06:59
Intake Total 480 / 480
Output Total 200 / 200
Balance -200 / -200 480 / 480
Review of Systems
-
History Source: Patient
All other systems: Not reviewed unless documented
Data Reviewed
-
Diagnostic Radiology: Report Reviewed by me
CT Scan: Report Reviewed by me
Labs: Labs Reviewed by me
[2024-08-10 15:09] VITALS: BP 139/72
[2024-08-10 17:22] LABS: Glucose - Point of Care 143 mg/dl (70-99)
[2024-08-10 21:17] LABS: Glucose - Point of Care 140 mg/dl (70-99)
[2024-08-10] MEDS: STERILE WATER FOR INJECTION 10 ML IV (21:51)
[2024-08-10] MEDS: ROCEPHIN 1000 MG IV (21:51)
[2024-08-10] MEDS: REQUIP 2 MG PO (21:55)
[2024-08-10] MEDS: LANTUS SC (22:39)
[2024-08-10] MEDS: LANTUS 0.34 UNITS SC (22:54)
[2024-08-10 23:00] VITALS: BP 110/59
[2024-08-11 03:28] LABS: Glucose - Point of Care 115 mg/dl (70-99)
[2024-08-11] MEDS: VIBRAMYCIN 260 MG IV (05:35)
[2024-08-11] MEDS: SYNTHROID 137 MCG PO (05:35)
[2024-08-11] MEDS: FLUSH (NSS) 1 FLUSH IV (05:37)
[2024-08-11 07:03] LABS: Hemoglobin 8.6 g/dL (12.0-16.0); Mean Corp Hgb Conc. 30.7 g/dL (33.0-37.0); Mean Corpuscular Hgb 24.2 pg (27.0-31.0); Mean Corpuscular Volume 78.9 fL (81.0-99.0); Mean Platelet Volume 9.4 fL (7.4-10.4); Platelet Count 240 10^3/uL (130-400); Red Blood Cell Count 3.55 10^6/uL (4.20-5.40); White Blood Cell Count 7.5 10^3/uL (4.8-10.8)
[2024-08-11 07:08] LABS: ALT (SGPT) 12 U/L (0-35); AST (SGOT) 17 U/L (14-36); Albumin 3.9 g/dl (3.5-5.0); Alkaline Phosphatase 79 U/L (38-126); Blood Urea Nitrogen 31 mg/dl (7-17); Carbon Dioxide 20 mmol/L (22-30); Chloride 106 mmol/L (98-107); Estimated Creatinine Clearance 30 ml/min; Glucose 80 mg/dl (70-99); Potassium 4.3 mmol/L (3.5-5.1); Sodium 138 mmol/L (135-145); Total Bilirubin 0.5 mg/dl (0.2-1.3); Total Protein 6.2 g/dl (6.3-8.2)
[2024-08-11 07:11] LABS: Glucose - Point of Care 100 mg/dl (70-99)
[2024-08-11 07:49] VITALS: BP 116/54
[2024-08-11] MEDS: NOVOLOG FLEXPEN-LOW RESISTANCE SC (09:07)
[2024-08-11] MEDS: LANTUS 0.44 UNITS SC (09:14)
[2024-08-11] MEDS: NORVASC 5 MG PO (09:15)
[2024-08-11] MEDS: VITAMIN D3 (cholecalciferol) 50 MCG PO (09:15)
[2024-08-11] MEDS: FARXIGA 10 MG PO (09:16)
[2024-08-11] MEDS: ZEMPLAR 2 MCG PO (09:16)
[2024-08-11] MEDS: CYMBALTA DELAYED RELEASE 20 MG PO (09:16)
[2024-08-11] MEDS: VITAMIN B-12 1000 MCG PO (09:17)
[2024-08-11] MEDS: FLOMAX 0.4 MG PO (09:17)
[2024-08-11] MEDS: BUMEX 1 MG PO (09:17)
[2024-08-11] MEDS: CRESTOR 10 MG PO (09:17)
[2024-08-11] MEDS: TYLENOL 650 MG PO (09:18)
[2024-08-11] MEDS: OCUVITE SOFTGEL 1 CAP PO (09:20)
[2024-08-11] MEDS: ZESTRIL 40 MG PO (09:20)
[2024-08-11] MEDS: ULTRAM 50 MG PO (09:20)
[2024-08-11] MEDS: HEPARIN 5000 UNITS SC (09:21)
[2024-08-11 11:50] LABS: Glucose - Point of Care 161 mg/dl (70-99)
[2024-08-11] MEDS: NOVOLOG FLEXPEN-LOW RESISTANCE 1 UNITS SC (11:56)
--- NOTE | 2024-08-11 12:39 | W.PN.HOSP.TC ---
Addendum entered and electronically signed by Malvin Bernstein MD 08/13/24 16:16:
[id number]
Original Note:
Today's Communication/Plan
-
f/u gi outpt
f/u pcp outpt
Imodium, low residue diet
can complete 5 day course of abx
Assessment / Plan
Assessment / Plan
Physical Exam
General: Well Developed, Well Nourished and No Apparent Distress
HEENT: NormoCephalic, Moist mucous membranes and Atraumatic
Respiratory: Clear
Cardiac: S1/S2 and Regular Rhythm; No Murmur or Rub
GI: Soft, Non Tender, Non Distended and Normal Bowel Sounds; No Organomegaly
Rectal: Deferred by Provider
Musculoskeletal: No Clubbing, No Cyanosis and No Edema
Skin: No Rash
Neuro: Nonfocal/grossly intact
#Abdominal Pain
#Nausea, vomiting
-has diarrhea, improving
-imaging unremarkable
- stool cultures, c diff negative
�Symptomatic control, imodium ordered
-probiotics
-f/u gi outpt
# Left foot pain
unremarkable imaging
-f/u podiatry, pcp outpt
-appears to be neuropathic pain and patient has had side effects with gabapentin and wants to avoid at this time
# Back pain/flank pain
-Likely musculoskeletal since CT scan unremarkable
-Continue lidocaine patch
-Continue tramadol
-has had recent passing of stone
-f/u pcp
#Pneumonitis/mild pneumonia of the left lower lobe
-No symptoms
-Leukocytosis
-Blood cultures pending
-Ceftriaxone/doxycycline - dc on cefdinir, doxy to complete 5 day total course of abx
# Passed kidney stone
-Passed today
-Continue tamsulosin
# Incidentally discovered hepatic cirrhosis
-No prior history of alcohol use
� Probably secondary to liver disease
-Does not take excessive Tylenol
� [facility] by [facility]
-f/u GI outpatient
# History of type 2 diabetes
-Insulin sliding scale
-Diabetic diet
Chronic kidney disease
-Renal function at baseline
-Continue Bumex
-Continue paricalcitol
Morbid obesity
Asthma
-Continue albuterol
Osteoporosis
Hyperlipidemia
-Continue statin
Essential hypertension
-Continue amlodipine
-Continue lisinopril
Hypothyroidism
-Continue levothyroxine
Restless leg syndrome
-Continue ropinirole
Antifungal therapy
-Only takes fluconazole as needed
Full code
DVT prophylaxis�heparin
More than 30 minutes spent in discharge including
Final examination of the patient
Summarizing hospital stay
Instructions for continuing care to all relevant caregivers
Preparation of discharge records, prescriptions, and referral forms
Total time spent (36 in minutes):
Anticipated Discharge: Today
Subjective/Interval History
-
Date of Service: August 11, 2024
tolerating diet, has some mild episodes of diarrhea, abd non tender
Objective Data
-
Labs:
Laboratory Results
08/11/24
04:50
WBC 7.5
Hgb 8.6 L
Hct 28.0 L
Plt Count 240 D
Sodium 138
Potassium 4.3
Chloride 106
Carbon Dioxide 20 L
BUN 31 H
Creatinine 1.6 H
Glucose 80
Calcium 9.0
Total Bilirubin 0.5
AST 17
ALT 12
Alkaline Phosphatase 79
Vital Signs:
Vital Signs
Temp Pulse Resp BP Pulse Ox
98.1 F 83 18 116/54 95
08/11/24 07:49 08/11/24 07:49 08/11/24 07:49 08/11/24 07:49 08/11/24 08:00
I&O
08/10/24 08/11/24 08/12/24
06:59 06:59 06:59
Intake Total 480 / 480 750 / 750
Balance 480 / 480 750 / 750
Review of Systems
-
History Source: Patient
All other systems: Not reviewed unless documented
Data Reviewed
-
Diagnostic Radiology: Report Reviewed by me
CT Scan: Report Reviewed by me
Labs: Labs Reviewed by me
--- NOTE | 2024-08-11 12:46 | W.DS.TRANS ---
DC Summary - Heel Sewer
-
Discharge Instructions:
Discharge Diagnosis/Procedures
#Abdominal Pain
#Nausea, vomiting
Diet Low Residue,Diabetic, Carb Controlled,Low
Cholesterol,Low Fat
Activity As tolerated
Blood Work cbc and bmp in 1 week with pcp
Others Tests as per GI outpt
Instructions:
Stand-Alone Forms:
Changes to Home Medications: Yes
Discharge Medications:
DC Medications w/original date entered in [employer]
albuterol sulfate 90 mcg/actuation aerosol inhaler (Ventolin HFA) 2 puff inhalation Q4HPRN PRN wheezing 02/06/19
amlodipine 5 mg tablet 5 mg PO DAILY 02/06/19
bumetanide 2 mg tablet 1 mg PO DAILY 02/06/19
cholecalciferol (vitamin D3) 50 mcg (2,000 unit) tablet 2,000 units PO DAILY 02/06/19
levothyroxine 137 mcg tablet 137 mcg PO DAILY 02/06/19
nitroglycerin 0.4 mg sublingual tablet 0.4 mg sublingual [id number] PRN chest pain 02/06/19
ropinirole 2 mg tablet 2 mg PO HS 02/06/19
rosuvastatin 20 mg tablet 20 mg PO DAILY 02/06/19
tramadol 50 mg tablet 50 mg PO TID 02/06/19
acetaminophen 650 mg tablet,extended release 1,300 mg PO TID 08/08/24
cyanocobalamin (vitamin B-12) 1,000 mcg tablet 1,000 mcg PO DAILY 08/08/24
dapagliflozin propanediol 10 mg tablet (Farxiga) 10 mg PO DAILY 08/08/24
diclofenac sodium 1 % topical gel 2 g topical DAILYPRN PRN back 08/08/24
duloxetine 20 mg capsule,delayed release 20 mg PO DAILY 08/08/24
fluconazole 100 mg tablet 100 mg PO DAILY 08/08/24
insulin glargine 100 unit/mL (3 mL) subcutaneous pen (Basaglar KwikPen U-100 Insulin) 44 unit SC BID 08/08/24
insulin lispro 100 unit/mL subcutaneous solution (Humalog U-100 Insulin) 1 sliding scale dose SC AC 08/08/24
lidocaine 4 % topical patch 4 patch topical HS 08/08/24
lisinopril 40 mg tablet 40 mg PO DAILY 08/08/24
ondansetron 4 mg disintegrating tablet 4 mg PO Q8HPRN PRN nausea and vomiting 08/08/24
paricalcitol 2 mcg capsule 2 mcg PO DAILY 08/08/24
tamsulosin 0.4 mg capsule 0.4 mg PO DAILY 08/08/24
vitamins A,C,B-czhh-[id number] 4,296 mcg-226 mg-90 mg capsule (PreserVision AREDS) 1 cap PO DAILY 08/08/24
cefdinir 300 mg capsule 300 mg PO BID 3 days #6 caps 08/11/24
doxycycline hyclate 100 mg capsule 100 mg PO BID 3 days #6 caps 08/11/24
loperamide 2 mg capsule (Imodium A-D) 2 mg PO Q6H PRN for diarrhea #90 caps 08/11/24
Home Medication Changes
cefdinir 300 mg capsule 300 mg PO BID 3 days #6 caps 08/11/24
doxycycline hyclate 100 mg capsule 100 mg PO BID 3 days #6 caps 08/11/24
loperamide 2 mg capsule (Imodium A-D) 2 mg PO Q6H PRN for diarrhea #90 caps 08/11/24
Pending Results: No
--- NOTE | 2024-08-11 12:57 | CM ---
CM reviewed chart, patient seen bedside with , discussed patient for discharge today. Patient provided with several brochures for private care per patients request. IMM verbally reviewed, agreeable to discharge, placed in chart. CM will
continue to follow for all discharge planning needs.
Plan; home no needs.
[2024-08-11 15:07] VITALS: BP 118/52
== END 2024-08-11 15:21 | disposition home or self-care (01) | DRG 193 ==
LOC: 4 WEST ACU 23:47
PROVIDERS: Physician Assistant; ADMITTING PHYSICIAN Hospitalist; ATTENDING PHYSICIAN Internal Medicine; EMERGENCY PHYSICIAN Emergency Medicine; FAMILY PHYSICIAN Student in an Organized Health Care Education/Training Program
DX: J18.9 Pneumonia, unspecified organism (principal); E11.10 Type 2 diabetes mellitus with ketoacidosis without coma; M79.672 Pain in left foot; N20.0 Calculus of kidney; K74.60 Unspecified cirrhosis of liver; E11.22 Type 2 diabetes mellitus with diabetic chronic kidney disease; E66.01 Morbid (severe) obesity due to excess calories; Z68.38 Body mass index [BMI] 38.0-38.9, adult; J45.909 Unspecified asthma, uncomplicated; M81.0 Age-related osteoporosis without current pathological fracture; E78.5 Hyperlipidemia, unspecified; I12.9 Hypertensive chronic kidney disease with stage 1 through stage 4 chronic kidney disease, or unspecified chronic kidney disease; N18.9 Chronic kidney disease, unspecified; E03.9 Hypothyroidism, unspecified; G25.81 Restless legs syndrome; Z79.4 Long term (current) use of insulin
CPT/HCPCS: 71046; 73630; 74176; 80048; 80053; 81003; 81015; 82010; 82805; 82962; 83036; 85025; 85027; 87040; 87045; 87046; 87324; 87427; 87449; 89055; 93005

== ENCOUNTER 2024-08-18 16:56 | Inpatient (IN) | payer MEDICARE, OTHER, SELFPAY ==
[2024-08-18] VITALS (9 sets, daily range): BP systolic 94–130; BP diastolic 54–91; BMI 39.6
--- NOTE | 2024-08-18 12:36 | ED.GENMED ---
History of Present Illness
General
Chief Complaint: Flank Pain
Source: patient
Exam Limitations: none
Time Seen by Provider: 08/18/24 12:41
Nursing documentation reviewed up to this point in time: agreed with
History of Present Illness
History of Present Illness:
78-year-old female with a past medical history of insulin dependent diabetes, osteoarthritis, hyperlipidemia, CKD stage IV, presents emergency department today with concerns of left-sided flank pain. Patient reports that she has had chronic
abdominal pain and flank pain ever since she started a weight loss medication back in May 2024. Patient states that she still had pain after stopping that medication. She also had a lot of diarrhea associated with that however patient states
that the diarrhea has since stopped. Of note, patient was recently discharged from our hospital 4 days ago for mild DKA and passed kidney stone. Patient reports that she felt like since the discharge, she has not improved and her pain has been
persistent and getting worse. She was at her primary care provider's office today for a posthospitalization follow-up and her physician noted that she was very uncomfortable due to her pain and her blood pressure was low, systolically in the 80s so
she was sent to the emergency department for further evaluation. She was supposed to have a follow-up appointment with gastroenterology with Dr. Silvano perez afternoon however she was in too much pain. Patient denies burning with urination,
hematuria, vomiting, nausea, fevers or chills, shortness of breath, chest pain.
Past History
Past History
ED Past Medical History: HTN, NIDDM, Renal failure and Other (Chronic renal disease)
ED Past Surgical History: Cholecystectomy
Social History
Tobacco: Non-smoker
Alcohol: None
Drug: Marijuana
Personal:
Living: with family
Employment: Retired
Review of Systems
Review of Systems
All Other Systems: ROS reviewed and negative except as documented in HPI and ROS
Phy Exam
Physical Exam
Physical Exam:
General: Patient is well appearing and in no acute distress; non-toxic
Skin: Warm and dry, no rashes or lesions
Head: Normocephalic, atraumatic
Eyes: Sclera non-icteric. EOMs intact.
Cardiac: Regular rate and rhythm, no murmurs
Peripheral Vascular: No lower extremity swelling or edema
Pulm: Normal respiratory effort, no wheezes, rales, or rhonchi
Abdomen: Left CVA tenderness, mild LLQ tenderness to palpation
Neuro: CN II-XII intact, no focal neurologic deficits.
Psychiatric: Appropriate mood and affect.
Course
Orders/Labs/Results
Orders:
Orders
08/18/24 12:51
CBC/With Diff [Complete Blood Count/With Diff] Urgent
CMP [Comprehensive Metabolic Panel] Urgent
Lipase Urgent
Magnesium Urgent
08/18/24 12:53
Urinalysis Reflex To Culture Urgent
08/18/24 12:54
Diphenhydramine [Benadryl] 25 mg IV NOW STA
HYDROmorphone [Dilaudid] 0.5 mg IV NOW STA
08/18/24 13:02
CT Abd/pel Without Iv Or Oral Urgent
Comment:
Reason For Exam: left flank pain
08/18/24 14:22
0.9% Sodium Chloride 500 ml [Nss] 500 ml IV BOLUS
Abnormal Lab Results
08/18/24
12:51
RBC 4.09 L 10^6/uL
(4.20-5.40)
Hgb 9.8 L g/dL
(12.0-16.0)
Hct 33.1 L %
(37.0-47.0)
MCV 80.9 L fL
(81.0-99.0)
MCH 24.0 L pg
(27.0-31.0)
MCHC 29.6 L g/dL
(33.0-37.0)
RDW 16.9 H %
(11.5-14.5)
Absolute Neuts (auto) 6.6 H 10^3/uL
(1.4-6.5)
Carbon Dioxide 21 L mmol/L
(22-30)
BUN 86 H mg/dl
(7-17)
Creatinine 3.0 H mg/dL
(0.6-1.0)
Glucose 187 H mg/dl
(70-99)
Magnesium 2.5 H mg/dl
(1.6-2.3)
08/18/24 12:51
08/18/24 12:51
Vital Signs
Initial and Last Documented VS:
Initial Vital Signs
Temp Pulse Resp BP Pulse Ox
97.7 F 94 20 115/79 100
08/18/24 12:37 08/18/24 12:37 08/18/24 12:37 08/18/24 12:37 08/18/24 12:37
Last Documented Vital Signs
Temp Pulse Resp BP Pulse Ox
97.7 F 84 20 111/54 100
08/18/24 12:37 08/18/24 13:45 08/18/24 12:37 08/18/24 13:40 08/18/24 12:37
MDM/Problems Addressed
Differential Diagnosis Includes:
ddx include nephrolithiasis, diverticulitis, UTI, gastroenteritis
MDM/Problems Addressed:
78-year-old female with a past medical history of hypertension, hyperlipidemia, stage IV renal failure, diabetes on insulin presents emergency department today with concerns of left-sided flank pain abdominal pain. She does have a history of
chronic left flank pain however she reports that the pain in the past these has been a lot worse. She was discharged recently from the hospital and since then has had significant decline in how she is feeling. She is on tramadol and Tylenol every
6 hours with minimal relief. She saw her PCP today for post hospitalization checkup and her PCP sent her to the ER the severity of her pain and the fact that she was hypotensive in the office. Here she is normotensive plain CAT scan to assess and
she is afebrile. She appears uncomfortable but generally well-appearing nontoxic-appearing does have left-sided CVA tenderness. Will send for for obstructing stone. She does follow with nephrology here. Creatinine today is 3 which is a
significant increase in the past few days. Elevated BUN ratio could suggest prerenal etiology. Will give IV fluids and reassess
On reassessment, patient states that she feels very weak. CT negative for obstructing stone. Will admit for ADEOLA considering increase in creatinine by 1.3 over the past few days. Case discussed with hospitalist.
Chronic conditions affecting care:
CKD, diabetes, asthma, htn
*Pulse Oximetry
Patient hypoxic: no
*Critical Care Note
Total Time (30-74mins, 75-104mins- exclusive of procedures): Not Applicable
Data Reviewed
Review of Other/Old Records Reveals: Records (Reviewed PCP note from today by Dr. Srivastava)
Source: patient and records
ED Attending Note
-
Portions of this chart may have been created with voice recognition software.� Occasional wrong word or��sound alike� substitutions may have occurred due to the inherent limitations of voice recognition software.
Discharge Plan
Departure
Patient Disposition: Admit
Date of Disposition: 08/18/24
Time of Disposition: 15:26
Admit to: Med/Surg
Presentation/result/management discussed w/ accepting MD/DO: Hospitalist
Condition: Fair
Discharge Problem:
Acute kidney failure, Left flank pain
Prescriptions:
No Action
tramadol 50 MG tablet
50 mg PO TID
nitroglycerin 0.4 MG tablet, sublingual
0.4 mg sublingual [id number] PRN (Reason: chest pain)
albuterol sulfate [Ventolin HFA] 90 MCG/PUFF HFA aerosol inhaler
2 puff inhalation Q4HPRN PRN (Reason: wheezing)
levothyroxine 137 MCG tablet
137 mcg PO DAILY
bumetanide 2 MG tablet
1 mg PO DAILY
amlodipine 5 MG tablet
5 mg PO DAILY
ropinirole 2 MG tablet
2 mg PO HS
rosuvastatin 20 MG tablet
20 mg PO DAILY
cholecalciferol (vitamin D3) 2,000 UNITS tablet
2,000 units PO DAILY
fluconazole 100 mg Tablet
100 mg PO DAILY
lidocaine 4 % Adhesive Patch,Medicated
4 patch TOPICAL HS
Patient Comments:
08/08/24: 1 on R shoulder, 1 on R upper arm, 2 on back
cyanocobalamin (vitamin B-12) 1,000 mcg Tablet
1,000 mcg PO DAILY
acetaminophen 650 mg Tablet Extended Release
1,300 mg PO TID
tamsulosin 0.4 mg Capsule
0.4 mg PO DAILY
insulin lispro [Humalog U-100 Insulin] 100 unit/mL Solution
1 sliding scale dose SC AC
lisinopril 40 mg Tablet
40 mg PO DAILY
duloxetine 20 mg Capsule,Delayed Release(Dr/Ec)
20 mg PO DAILY
paricalcitol 2 mcg Capsule
2 mcg PO DAILY
PreserVision AREDS 4,296 mcg-226 mg-90 mg Capsule
1 cap PO DAILY
insulin glargine [Basaglar KwikPen U-100 Insulin] 100 unit/mL (3 mL) Insulin Pen
44 unit SC BID
diclofenac sodium 1 % Gel
2 g TOPICAL DAILYPRN PRN (Reason: back)
dapagliflozin propanediol [Farxiga] 10 mg Tablet
10 mg PO DAILY
ondansetron 4 mg tablet,disintegrating
4 mg PO Q8HPRN PRN (Reason: nausea and vomiting)
cefdinir 300 mg capsule
300 mg PO BID 3 Days Qty: 6 0RF
doxycycline hyclate 100 mg capsule
100 mg PO BID 3 Days Qty: 6 0RF
loperamide [Imodium A-D] 2 mg capsule
2 mg PO Q6H PRN (Reason: for diarrhea) Qty: 90 0RF
Referrals:
Racquel Srivastava MD [Family Provider] -
Interventions
Interventions:
*Risk Screen - Suicide Last Done: 08/18/24 12:37
*General Assessment Last Done: 08/18/24 12:37
*Neglect/Abuse Screening Last Done: 08/18/24 12:37
*ED- Fall Risk Assessment Last Done: 08/18/24 12:37
*ED COVID-19 Vaccine History Last Done: 08/18/24 12:37
AZ-Bkaqyh-Zfywxljmso Assessment Last Done: 08/18/24 13:53
ED-Female Genitourinary Assessment Last Done: 08/18/24 13:54
Discharge Date and Time
Print Language: ETHIOPIAN
[2024-08-18 13:02] LABS: % Basophils 0.6 % (0-2); % Eosinophils 0.7 % (0-6); % Immature Granulocytes 0.4 % (0-0.5); % Lymphocytes 25.8 % (20.5-51.1); % Neutrophils 66.5 % (42.2-75.2); Absolute Basophils 0.1 10^3/uL (0-0.2); Absolute Eosinophils 0.1 10^3/uL (0-0.7); Absolute Lymphocytes 2.6 10^3/uL (1.2-3.4); Absolute Monocytes 0.6 10^3/uL (0.1-0.6); Absolute Neutrophils 6.6 10^3/uL (1.4-6.5); Hematocrit 33.1 % (37.0-47.0); Hemoglobin 9.8 g/dL (12.0-16.0); Mean Corp Hgb Conc. 29.6 g/dL (33.0-37.0); Mean Corpuscular Volume 80.9 fL (81.0-99.0); Mean Platelet Volume 9.1 fL (7.4-10.4); Nucleated Red Blood Cells % 0 %; Platelet Count 335 10^3/uL (130-400); Red Blood Cell Count 4.09 10^6/uL (4.20-5.40); Red Cell Dist. Width 16.9 % (11.5-14.5); White Blood Cell Count 9.9 10^3/uL (4.8-10.8)
[2024-08-18] MEDS: BENADRYL 25 MG IV (13:03)
[2024-08-18] MEDS: DILAUDID 0.5 MG IV (13:04)
[2024-08-18 13:17] LABS: ALT (SGPT) 15 U/L (0-35); AST (SGOT) 22 U/L (14-36); Albumin 4.5 g/dl (3.5-5.0); Alkaline Phosphatase 91 U/L (38-126); Blood Urea Nitrogen 86 mg/dl (7-17); Calcium 10.1 mg/dl (8.4-10.2); Carbon Dioxide 21 mmol/L (22-30); Chloride 98 mmol/L (98-107); Estimated Creatinine Clearance 16 ml/min; Glucose 187 mg/dl (70-99); Magnesium 2.5 mg/dl (1.6-2.3); Sodium 138 mmol/L (135-145); Total Bilirubin 0.6 mg/dl (0.2-1.3); Total Protein 6.9 g/dl (6.3-8.2); eGFR 15.24
[2024-08-18 14:09] LABS: Lipase 190 U/L (23-300)
[2024-08-18] MEDS: NSS 500 IV (14:29)
--- NOTE | 2024-08-18 16:03 | HPS.HSE ---
Family Physician
-
Family Physician: Racquel Srivastava MD
Chief Complaint
-
Hypotension and Flank Pain
History of Present Illness
Patient is an 78 y/o female past medical history of DM, CKD, HTN and recent hospitalization for abdominal pain at which time she was also treated with antibiotics for possible pneumonia who presents today with left flank and hypotension. Patient
was seen by her PCP today for her post-discharge follow-up. She was noted to by hypotensive in the office and sent to the emergency department for evaluation. Patient reports poor oral intake since discharge with persistent nausea, but no
vomiting. She reports prior diarrhea has resolved. She denies any significant changes in her urine. She reports persistent flank/abdominal pain for which she has been taking Tylenol and Ultram. She denies any NSAID use.
Medical History
Past Medical History
Past Medical History: Reports Other
Additional Past Medical History:
Diabetes Mellitus, Type II
CKD Stage III
Essential Hypertension
Hyperlipidemia
Hypothyroidism
Hepatic Cirrhosis
Asthma
Osteoporosis
Morbid Obesity
Nephrolithiasis
Restless Leg Syndrome
Past Surgical History: Reports Other
Additional Past Surgical History:
Bilateral Knee Replacements
Cholecystectomy
Appendectomy
Left Upper Ext AV Fistula
Social History
Tobacco: Non-smoker
Alcohol: None
Drug: None
Family History
Family History: Not pertinent
Allergies / Home Medications
Allergies reflects when Allergies were last updated in [facility].
Home Medications with original date entered in [facility]
Allergy/Medication List:
Allergies
Allergy/AdvReac Type Severity Reaction Status Date / Time
morphine Allergy red Verified 08/08/24 16:55
flushing,
itchy
penicillin V Allergy Rash; Verified 08/08/24 16:55
TOLERATED
CEFAZOLIN
01/30
potassium Allergy Unknown Verified 08/08/24 16:55
Home Medications
albuterol sulfate 90 mcg/actuation aerosol inhaler (Ventolin HFA) 2 puff inhalation R Q4HPRN PRN wheezing 02/06/19
amlodipine 5 mg tablet 5 mg PO DAILY 02/06/19
bumetanide 2 mg tablet 1 mg PO DAILY 02/06/19
levothyroxine 137 mcg tablet 137 mcg PO DAILY 02/06/19
nitroglycerin 0.4 mg sublingual tablet 0.4 mg sublingual [id number] PRN chest pain 02/06/19
ropinirole 2 mg tablet 2 mg PO HS 02/06/19
rosuvastatin 20 mg tablet 20 mg PO DAILY 02/06/19
tramadol 50 mg tablet 50 mg PO Q6H 02/06/19
acetaminophen 650 mg tablet,extended release 1,300 mg PO Q6H 08/08/24
dapagliflozin propanediol 10 mg tablet (Farxiga) 10 mg PO DAILY 08/08/24
diclofenac sodium 1 % topical gel 2 g topical DAILYPRN PRN right shoulder 08/08/24
duloxetine 20 mg capsule,delayed release 20 mg PO DAILY 08/08/24
insulin glargine 100 unit/mL (3 mL) subcutaneous pen (Basaglar KwikPen U-100 Insulin) 44 unit SC BID 08/08/24
insulin lispro 100 unit/mL subcutaneous solution (Humalog U-100 Insulin) 1 sliding scale dose SC AC 08/08/24
lidocaine 4 % topical patch 4 patch topical HS 08/08/24
lisinopril 40 mg tablet 40 mg PO DAILY 08/08/24
ondansetron 4 mg disintegrating tablet 4 mg PO Q8HPRN PRN nausea and vomiting 08/08/24
vitamins A,C,M-ttzk-ottrnc 4,296 mcg-226 mg-90 mg capsule (PreserVision AREDS) 1 cap PO DAILY 08/08/24
phenylephrine HCl 1 % nasal spray (4 Way) 2 spray intranasal BID 08/18/24
Review of Systems
-
A 12 point ROS was completed and negative except as noted: Yes
Constitutional: Denies Fever
Respiratory: Denies Cough or Trouble Breathing
Cardiac: Denies Chest Pain or Palpitations
Abdomen/GI: Reports See HPI
Physical Exam
Vital Signs
Vital Signs
Temp Pulse Resp BP Pulse Ox
97.7 F 81 20 109/66 100
08/18/24 12:37 08/18/24 16:00 08/18/24 12:37 08/18/24 13:50 08/18/24 12:37
Physical Exam
General: Comfortable and Conversant
HEENT: Anicteric and Moist mucous membranes
Respiratory: Clear and Non Labored Respirations
Cardiac: S1/S2 and Regular Rhythm
GI: Soft and Other (Tenderness left lower quadrant without rebound or guarding)
Musculoskeletal: No Clubbing, No Cyanosis and No Edema
Skin: Warm and Dry
Neuro: Awake, Alert, Oriented and Nonfocal/grossly intact
Psych: Calm
Laboratory Results
-
08/18/24 12:51
08/18/24 12:51
Laboratory Results
Total Bilirubin 0.6 mg/dl (0.2-1.3) 08/18/24 12:51
AST 22 U/L (14-36) 08/18/24 12:51
ALT 15 U/L (0-35) 08/18/24 12:51
Alkaline Phosphatase 91 U/L (38-126) 08/18/24 12:51
Lipase 190 U/L (23-300) 08/18/24 12:51
Data Reviewed
-
CT Scan: Report Reviewed by me
Lab Data: Labs Reviewed by me
Impression/Plan
-
Acute Kidney Injury on CKD III - Suspect Pre-Renal due to poor oral intake
-Consult Nephrology
-Check urinalysis
-Hold Bumex
-Hold Lisinopril
-Hold Farxiga
-Give IVFs
-Recheck labs in AM
Persistent Nausea
-Add Protonix
-Advance diet as tolerated
-Consider GI consult
Flank / Abdominal Pain, felt to be musculoskeletal
-Continue Tylenol and Tramadol as prior to admission
-Continue Duloxetine
Diabetes Mellitus, Type II
-Continue decreased dose of glargine in setting of ADEOLA
-Monitor sugars and continue coverage insulin
Essential Hypertension
-Hold amlodipine due to hypotension upon presentation to ED
-Hold lisinopril due to ADEOLA
Hyperlipidemia
-Continue rosuvastatin
Hypothyroidism
-continue levothyroxine
Anemia of Chronic Disease
-Hgb at baseline
Asthma, no acute exacerbation
-Continue albuterol PRN
Restless Leg Syndrome
-Continue ropinirole
Hepatic Cirrhosis
-Incidental finding from prior admission
Morbid Obesity due to Excess Calories
-Affects all aspects fo care
DVT proph: SC Heparin
Code Status: Full Code
--- NOTE | 2024-08-18 16:46 | W.CON.NEPH ---
Consultation
-
Date/Time Consultation Requested: 08/18/24 400 PM
Date/Time Consultation Performed: 08/18/24 450 PM
Requesting Provider: Dr. Smith
Performing Provider: Dr. Campbell
Reason for Consultation: ADEOLA/CKD
Medical History
-
Chief Complaint: ADEOLA CKD 3b
History of Present Illness:
78-year-old female with a past medical history of insulin dependent diabetes, osteoarthritis, hyperlipidemia, CKD stage IV (1.6 on 08/11/24), HTN (On amlodipine and lisinopril) presents emergency department today with concerns of left-sided flank
pain. Patient reports that she has had chronic abdominal pain and flank pain ever since she started a weight loss medication back in May 2024. Patient states that she still had pain after stopping that medication. She also had a lot of
diarrhea associated with that however patient states that the diarrhea has since stopped. Of note, patient was recently discharged from our hospital 4 days ago for mild DKA and passed kidney stone. Patient reports that she felt like since the
discharge, she has not improved and her pain has been persistent and getting worse. She was at her primary care provider's office today for a posthospitalization follow-up and her physician noted that she was very uncomfortable due to her pain and
her blood pressure was low, systolically in the 80s so she was sent to the emergency department for further evaluation. She was supposed to have a follow-up appointment with gastroenterology with Dr. Schaefer liters afternoon however she was in too
much pain. Patient denies burning with urination, hematuria, vomiting, , fevers or chills, shortness of breath, chest pain.. She admits that her by mouth intake has been poor over the past several days.Presentation to the hospital. She was in
acute kidney injury with a creatinine of 3 and nephrology was asked to see the patient.
Past Medical History
(morbid obesity, diabetes, CKD (1.6), Kidney stones, asthma, osteoporosis, hyperlipidemia, hypertension, hypothyroidism, restless leg syndrome,)
Social History
Tobacco: Non-Smoker
Alcohol: None
Drug: None
Personal:
Living: With Family
Family History
no CKD
Allergies / Home Medications
Allergy/AdvReac Type Severity Reaction Status Date / Time
morphine Allergy red Verified 08/08/24 16:55
flushing,
itchy
penicillin V Allergy Rash; Verified 08/08/24 16:55
TOLERATED
CEFAZOLIN
01/30
potassium Allergy Unknown Verified 08/08/24 16:55
�Medication �Instructions �Recorded �Confirmed �Type
albuterol sulfate 90 mcg/actuation 2 puff inhalation R Q4HPRN PRN 02/06/19 08/18/24 History
aerosol inhaler (Ventolin HFA) wheezing
amlodipine 5 mg tablet 5 mg PO DAILY 02/06/19 08/18/24 History
bumetanide 2 mg tablet 1 mg PO DAILY 02/06/19 08/18/24 History
levothyroxine 137 mcg tablet 137 mcg PO DAILY 02/06/19 08/18/24 History
nitroglycerin 0.4 mg sublingual 0.4 mg sublingual [id number] PRN 02/06/19 08/18/24 History
tablet chest pain
ropinirole 2 mg tablet 2 mg PO HS 02/06/19 08/18/24 History
rosuvastatin 20 mg tablet 20 mg PO DAILY 02/06/19 08/18/24 History
tramadol 50 mg tablet 50 mg PO Q6H 02/06/19 08/18/24 History
acetaminophen 650 mg 1,300 mg PO Q6H 08/08/24 08/18/24 History
tablet,extended release
dapagliflozin propanediol 10 mg 10 mg PO DAILY 08/08/24 08/18/24 History
tablet (Farxiga)
diclofenac sodium 1 % topical gel 2 g topical DAILYPRN PRN right 08/08/24 08/18/24 History
shoulder
duloxetine 20 mg capsule,delayed 20 mg PO DAILY 08/08/24 08/18/24 History
release
insulin glargine 100 unit/mL (3 44 unit SC BID 08/08/24 08/18/24 History
mL) subcutaneous pen (Basaglar
KwikPen U-100 Insulin)
insulin lispro 100 unit/mL 1 sliding scale dose SC AC 08/08/24 08/18/24 History
subcutaneous solution (Humalog
U-100 Insulin)
lidocaine 4 % topical patch 4 patch topical HS 08/08/24 08/18/24 History
lisinopril 40 mg tablet 40 mg PO DAILY 08/08/24 08/18/24 History
ondansetron 4 mg disintegrating 4 mg PO Q8HPRN PRN nausea and 08/08/24 08/18/24 History
tablet vomiting
vitamins A,C,J-bvgc-flijtn 4,296 1 cap PO DAILY 08/08/24 08/18/24 History
mcg-226 mg-90 mg capsule
(PreserVision AREDS)
phenylephrine HCl 1 % nasal spray 2 spray intranasal BID 08/18/24 08/18/24 History
([address])
Review of Systems
-
History Source: Patient
All other systems: Negative unless noted
Constitutional: Fever, Fatigue and Other (decreased by mouth intake)
EENT: No Symptoms
Respiratory: No Symptoms
Cardiac: No Symptoms
Abdomen/GI: Abdominal Pain ( left flank pain across anterior abdomen), Nausea and Anorexia
: No Symptoms
Skin: No Symptoms
Neurological: No Symptoms
Endocrine: No Symptoms
Hematologic/Lymphatic: No Symptoms
Physical Exam
Vital Signs
Vital Signs
Temp Pulse Resp BP Pulse Ox
97.7 F 81 20 109/66 100
08/18/24 12:37 08/18/24 16:00 08/18/24 12:37 08/18/24 13:50 08/18/24 12:37
Lab Results
08/18/24 12:51
08/18/24 12:51
WBC 9.9 10^3/uL (4.8-10.8) 08/18/24 12:51
RBC 4.09 10^6/uL (4.20-5.40) L 08/18/24 12:51
Hgb 9.8 g/dL (12.0-16.0) L 08/18/24 12:51
Hct 33.1 % (37.0-47.0) L 08/18/24 12:51
Plt Count 335 10^3/uL (130-400) 08/18/24 12:51
Sodium 138 mmol/L (135-145) 08/18/24 12:51
Potassium 5.0 mmol/L (3.5-5.1) 08/18/24 12:51
Chloride 98 mmol/L (98-107) 08/18/24 12:51
Carbon Dioxide 21 mmol/L (22-30) L 08/18/24 12:51
BUN 86 mg/dl (7-17) H 08/18/24 12:51
Creatinine 3.0 mg/dL (0.6-1.0) H 08/18/24 12:51
eGFR 15.24 08/18/24 12:51
Glucose 187 mg/dl (70-99) H 08/18/24 12:51
Calcium 10.1 mg/dl (8.4-10.2) 08/18/24 12:51
Albumin 4.5 g/dl (3.5-5.0) 08/18/24 12:51
Physical Exam
General: Awake, AOx3, No Distress and Nontoxic
HEENT: PERRL, EOMI, Anicteric, Conjunctivae Clear, Ear/Nose Intact, Hearing Normal, Oropharynx Clear/Moist, Dentition Intact, Facial Symmetry, Trachea Midline, No JVD and No Thyromegaly
Respiratory: Clear and Normal Excursion
Cardiac: S1/S2 and Regular Rate/Rhythm
Breast: Deferred by me
Abdomen: Soft, Nontender (, Tender at left lower abdominal quadrant and flank), Nondistended, Normal Bowel Sounds and No Hepatosplenomegaly
Rectal: Deferred by Provider
Genito-urinary: No Costovertebral Tender ( left flank pain with percussion)
Musculoskeletal: No Clubbing, No Cyanosis and No Edema
Skin: No Rash
Neuro: Nonfocal/Grossly Intact and Strength ( 5 out of 5. Metoprolol. Extremities)
Hematologic/Lymphatic: No Cervical Lymphadenopathy, No Submandibular Lymphadenopathy and No Supraclavicular Lymphadenopathy
Psych: Mood/afflect pleasant, Insight/judgement good and Appropriate
Data Reviewed
-
CT Scan: Report Reviewed by me (. CT of abdomen and pelvis reviewed: No hydronephrosis. No evidence of intestinal obstruction noted associated nonobstructive left nephrolith)
Labs: Labs Reviewed by me ( BMP, CBC)
Old Records: Reviewed ( reviewed all lab work from date 08/11/24, creatinine 1.6)
Assessment/Plan
-
Impression:
Acute kidney injury (3.0)
Chronic kidney disease stage IIIB (1.6)
Left lower abdominal pain and left flank pain
History of nephrolithiasis with recent spontaneous stone passage last week
Recent pneumonia diagnosis: completed Cefdinir, and doxycycline
History of hepatic cirrhosis
History of hypertension
Diabetes (Insulin requiring)
Morbid obesity
Hypothyroidism
Asthma
Anemia
Plan:
ADEOLA:
-Likely due to prerenal stimulus given hypotension on presentation
-Support with isotonic saline
-Holding antihypertensives and Bumex
-Check postvoid bladder scan intermittently to evaluate for obstructive causality,although CAT scan on admission shows no evidence of obstructive uropathy
-Check urine eosinophils for possible interstitial nephritis component, given risks and history of antibiotic usage for pneumonia during admission from last week
-Discussed with the admitting team
--- NOTE | 2024-08-18 17:24 | W.PN.UPDATE ---
Update Note
Progress Note Update
This is an addendum to the H&P written by Tania Black on 08/18/2024.� Patient seen and examined independently with PA.
78-year-old female past medical history of morbid obesity, diabetes, CKD, asthma, osteoporosis, hyperlipidemia, hypertension, hypothyroidism, restless leg syndrome, presenting with recurrent left abdominal/flank pain, ongoing nausea and decreased
p.o. intake.� No diarrhea at this time.
She was recently admitted from 08/08 to 08/11 for abdominal pain, nausea and vomiting attributed from prior antibiotic use.� She had CT imaging for flank pain at that time which was unremarkable.� Her back and flank pain were attributed to be
musculoskeletal.� She was treated for questionable pneumonia with 5 days of antibiotics.� Incidentally discovered to have hepatic cirrhosis thought to be secondary to MASH.
She [place] presents with recurrent symptoms.� Labs show ADEOLA on CKD with creatinine of 3.� Sent in from the office due to blood pressure of [address] abdomen pelvis shows small nonobstructing left renal calculi.�
Unclear why patient is having ongoing nausea/decreased p.o. intake and bilateral flank pain with left flank pain at this time.� Seems to be musculoskeletal and CT scan unremarkable.� Continue Tylenol and tramadol.
Will treat prerenal ADEOLA with IV fluids.� Nephrology consulted.
[2024-08-18 18:14] LABS: Glucose - Point of Care 107 mg/dl (70-99)
--- NOTE | 2024-08-18 18:18 | PTCARENOTE ---
Received patient from ED via stretcher. Pt AAOX3. Pox: 100% RA. Patient denies pain /SOB. Call aguilera within reach. Plan of care ongoing.
[2024-08-18] MEDS: NSS 1000 IV (18:34)
[2024-08-18] MEDS: NSS (PRESERVATIVE FREE) 10 ML IV (18:35)
[2024-08-18] MEDS: PROTONIX IV 40 MG IV (18:35)
[2024-08-18] MEDS: TYLENOL 650 MG PO (18:35)
[2024-08-18] MEDS: LANTUS 0.22 UNITS SC (20:33)
[2024-08-18 21:23] LABS: Glucose - Point of Care 249 mg/dl (70-99)
[2024-08-18] MEDS: LIDOCAINE 4% PATCH TOPICAL (21:23)
[2024-08-18] MEDS: REQUIP 2 MG PO (21:23)
[2024-08-18] MEDS: ULTRAM 50 MG PO (21:27)
[2024-08-18 21:51] LABS: Urine Albumin Negative (Neg - Trace); Urine Bilirubin Negative (Negative); Urine Character Clear (Clear); Urine Color Yellow; Urine Glucose 2+ (Negative); Urine Ketone Negative (Negative); Urine Leukocyte Negative (Negative); Urine Nitrite Negative (Negative); Urine Occult Blood Negative (Negative); Urine Urobilinogen Negative (Neg - 1+)
[2024-08-18 22:15] LABS: Body Fluid for Eosinophils No Eosinophils seen
[2024-08-18] MEDS: TYLENOL PO (23:43)
[2024-08-18] MEDS: HEPARIN SC (23:43)
[2024-08-19] MEDS: ULTRAM 50 MG PO ×3 (03:40→23:11)
[2024-08-19] MEDS: NSS 1000 IV ×2 (04:15→15:45)
[2024-08-19 04:57] VITALS: BMI 38.3
[2024-08-19] MEDS: TYLENOL 650 MG PO ×4 (05:06→23:11)
[2024-08-19] MEDS: SYNTHROID 137 MCG PO (05:06)
[2024-08-19 06:37] LABS: Hematocrit 27.5 % (37.0-47.0); Hemoglobin 8.1 g/dL (12.0-16.0); Mean Corp Hgb Conc. 29.5 g/dL (33.0-37.0); Mean Corpuscular Hgb 23.8 pg (27.0-31.0); Mean Corpuscular Volume 80.9 fL (81.0-99.0); Platelet Count 222 10^3/uL (130-400); Red Cell Dist. Width 16.8 % (11.5-14.5); White Blood Cell Count 5.7 10^3/uL (4.8-10.8)
[2024-08-19 06:39] LABS: Blood Urea Nitrogen 78 mg/dl (7-17); Calcium 8.9 mg/dl (8.4-10.2); Carbon Dioxide 24 mmol/L (22-30); Chloride 105 mmol/L (98-107); Estimated Creatinine Clearance 17 ml/min; Glucose 105 mg/dl (70-99); Magnesium 2.6 mg/dl (1.6-2.3); Potassium 4.9 mmol/L (3.5-5.1); Sodium 139 mmol/L (135-145); eGFR 16.55
[2024-08-19 07:00] VITALS: BP 119/54
[2024-08-19 07:27] LABS: Glucose - Point of Care 110 mg/dl (70-99)
[2024-08-19] MEDS: NOVOLOG FLEXPEN-MODERATE RESISTANCE SC (08:17)
[2024-08-19] MEDS: HEPARIN SC (08:18)
[2024-08-19] MEDS: CYMBALTA DELAYED RELEASE 20 MG PO (08:25)
[2024-08-19] MEDS: LANTUS 0.22 UNITS SC ×2 (08:25→21:25)
[2024-08-19] MEDS: PROTONIX 40 MG PO (08:25)
[2024-08-19] MEDS: CRESTOR 10 MG PO (08:25)
[2024-08-19] MEDS: HEPARIN 5000 UNITS SC ×2 (08:26→17:34)
--- NOTE | 2024-08-19 11:29 | W.PN.HOSP.TC ---
Today's Communication/Plan
-
GI eval
US abd ordered
MR L spine
PT/OT
Assessment / Plan
Assessment / Plan
Acute Kidney Injury on CKD III
- Suspect Pre-Renal due to poor oral intake
- h/o of ESRD? and AV fistula placement ?
- Hold nephrotoxic medication
- CT a/p did not show any acute issues
- was hypotensive in PCP office , has improved
Persistent Nausea
-Add Protonix
-GI consulted for help
-US abd ordered
Bilateral flank pain
Lumbar vacuum disc phenomenon
-CT a/p images reviewed and have air post to L3 body, increased in size from previous imaging
-MR L spine ordered.
-Continue Duloxetine
Diabetes Mellitus, Type II
-Continue decreased dose of glargine in setting of ADEOLA
-Monitor sugars and continue coverage insulin
Essential Hypertension
-Hold norvasc/lisinopril
Hyperlipidemia-Continue rosuvastatin
Hypothyroidism-continue levothyroxine
Anemia of Chronic Disease-Hgb at baseline
Asthma-Continue albuterol PRN
Restless Leg Syndrome-Continue ropinirole
Cirrhosis-Incidental finding from prior admission
Morbid Obesity due to Excess Calories -Affects all aspects fo care
DVT proph: SC Heparin
Code Status: Full Code
Total time spent : 53 mins
Anticipated Discharge: 24 - 48 hours
Subjective/Interval History
-
Date of Service: August 19, 2024
having some bilateral flank pain
nausea w/o vomiting
Objective Data
-
Labs:
Laboratory Results
08/19/24
04:46
WBC 5.7
Hgb 8.1 L
Hct 27.5 L
Plt Count 222 D
Sodium 139
Potassium 4.9
Chloride 105
Carbon Dioxide 24
BUN 78 H
Creatinine 2.8 H
Glucose 105 H
Calcium 8.9
Vital Signs:
Vital Signs
Temp Pulse Resp BP Pulse Ox
97.9 F 77 16 119/54 100
08/19/24 07:00 08/19/24 07:00 08/19/24 07:00 08/19/24 07:00 08/19/24 07:00
I&O
08/18/24 08/19/24 08/20/24
06:59 06:59 07:59
Intake Total 1440 / 1440
Output Total 550 / 550
Balance 890 / 890
Review of Systems
-
Respiratory: Reports No Symptoms
Cardiac: Reports No Symptoms
Abdomen/GI: Reports Abdominal Pain and Nausea
Physical Exam
-
General: No Apparent Distress and Comfortable
HEENT: Negative Oxygen
Respiratory: Clear to Auscultation
Cardiac: Regular Rhythm and S1/S2; Negative Murmur or Rub
GI: Soft, Nontender, Nondistended and Normal Bowel Sounds
Musculoskeletal: No Edema
Neuro: Awake, Alert, Oriented, No Motor Deficits and Nonfocal/Grossly Intact
Psych: Calm
[2024-08-19 12:00] VITALS: BP 109/56; PULSE 90; O2SAT 100
[2024-08-19 12:08] VITALS: BP 109/56; PULSE 90; O2SAT 100
[2024-08-19 12:10] LABS: Iron 43 ug/dl (37-170)
[2024-08-19 12:19] LABS: Percent Saturation 11 % (20-50); Total Iron Binding Capacity 365 ug/dl (265-497)
[2024-08-19 12:36] LABS: Ferritin 7.8 ng/ml (11.1-264.0)
[2024-08-19 12:44] LABS: Glucose - Point of Care 175 mg/dl (70-99)
[2024-08-19] MEDS: NOVOLOG FLEXPEN-MODERATE RESISTANCE 1 UNITS SC ×2 (12:57→17:36)
--- NOTE | 2024-08-19 12:59 | CM ---
Initial assessment was completed with pt at bedside.
Pt is an 78yr female admitted with hypotension and flank pain, ADEOLA.
Pt was previously admitted to and dc'd to home with no needs.
At home, pt lives with her in a 2 story home with 1 step to enter. Pt has a 2nd floor bedroom with a stairglide to reach it.
Pt is indep with the use of a RW or cane in the home.
Pt has had [facility] in the past and has had a stay at [facility].
Pt and SW spent a significant amount of time talking about her desire to have additional support at home but her 's hesitation to allow it. Pt does have resources from her last hospital admission and is well resourced.
PCP; Racquel Srivastava
Pharm; [facility]
CARL; home with no needs anticipated
--- NOTE | 2024-08-19 13:57 | W.PN.NEPH.PH ---
Today's Communication / Plan
-
lower IVF rate
Assessment/Plan
-
Impression:
Acute kidney injury (3.0)
Chronic kidney disease stage IIIB (1.6)
Left lower abdominal pain and left flank pain
History of nephrolithiasis with recent spontaneous stone passage last week
Recent pneumonia diagnosis: completed Cefdinir, and doxycycline
History of hepatic cirrhosis
History of hypertension
Diabetes (Insulin requiring)
Morbid obesity
Hypothyroidism
Asthma
Anemia
Plan:
ADEOLA:
-Likely due to prerenal stimulus given hypotension on presentation
cr slightly better with IVF and non oliguric, follow bladder scan
UA bland and U eosinophil neg
CAT scan on admission shows no evidence of obstructive uropathy
Holding antihypertensives and Bumex
cotn IVF for another day
US abd and MRI per primary
labs in am
-
-
Date of Service: August 19, 2024
CC / HPI / ROS
-
Chief Complaint:
ADEOLA with CKD
History of Present Illness:
cr better at 2.8, non oliguric
BP improving
no fever
Review of Systems:
no cp or sob
still with bilat abd pain
Labs
-
Labs:
WBC 5.7 10^3/uL (4.8-10.8) 08/19/24 04:46
RBC 3.40 10^6/uL (4.20-5.40) L 08/19/24 04:46
Hgb 8.1 g/dL (12.0-16.0) L 08/19/24 04:46
Hct 27.5 % (37.0-47.0) L 08/19/24 04:46
Plt Count 222 10^3/uL (130-400) D 08/19/24 04:46
Sodium 139 mmol/L (135-145) 08/19/24 04:46
Potassium 4.9 mmol/L (3.5-5.1) 08/19/24 04:46
Chloride 105 mmol/L (98-107) 08/19/24 04:46
Carbon Dioxide 24 mmol/L (22-30) 08/19/24 04:46
BUN 78 mg/dl (7-17) H 08/19/24 04:46
Creatinine 2.8 mg/dL (0.6-1.0) H 08/19/24 04:46
eGFR 16.55 08/19/24 04:46
Glucose 105 mg/dl (70-99) H 08/19/24 04:46
Calcium 8.9 mg/dl (8.4-10.2) 08/19/24 04:46
Albumin 4.5 g/dl (3.5-5.0) 08/18/24 12:51
Physical Exam
-
Vital Signs:
Vital Signs
Temp Pulse Resp BP Pulse Ox
97.9 F 77 16 119/54 100
08/19/24 07:00 08/19/24 07:00 08/19/24 07:00 08/19/24 07:00 08/19/24 07:00
Cardiovascular:: Regular rate and rhythm
Respiratory:: Bilateral: CTA
Lung Excursion:: Normal
Abdomen:: Nontender and Soft
Extremity Edema:: None: Bilateral:
Pyle Catheter: No
--- NOTE | 2024-08-19 14:37 | PTCARENOTE ---
Patient c/o LLQ pain and right shoulder pain after PT. Ultram given with good relief. Patient sitting at side of bed eating lunch. Spouse at bedside.
[2024-08-19 15:45] VITALS: BP 113/57
[2024-08-19 16:51] LABS: Glucose - Point of Care 150 mg/dl (70-99)
--- NOTE | 2024-08-19 18:18 | PTCARENOTE ---
Patient disimpacted herself for moderate amount of formed stool. Patient states, 'I have a pessary and now have trouble having bowel movements.'
[2024-08-19 21:16] LABS: Glucose - Point of Care 259 mg/dl (70-99)
[2024-08-19] MEDS: LIDOCAINE 4% PATCH 1 PATCH TOPICAL (21:23)
[2024-08-19] MEDS: REQUIP 2 MG PO (21:24)
[2024-08-19 23:48] VITALS: BP 135/65
[2024-08-20] MEDS: HEPARIN 5000 UNITS SC (00:56)
[2024-08-20] MEDS: OCEAN, SALINE MIST 2 SPRAYS NASAL (03:55)
[2024-08-20] MEDS: ULTRAM 50 MG PO ×3 (04:21→15:01)
[2024-08-20] MEDS: TYLENOL 650 MG PO ×3 (05:52→17:20)
[2024-08-20] MEDS: SYNTHROID 137 MCG PO (05:52)
[2024-08-20 05:59] LABS: Glucose - Point of Care 121 mg/dl (70-99)
[2024-08-20 06:00] VITALS: BMI 38.5
[2024-08-20 06:04] LABS: Hematocrit 24.5 % (37.0-47.0); Hemoglobin 7.4 g/dL (12.0-16.0); Mean Corp Hgb Conc. 30.2 g/dL (33.0-37.0); Mean Corpuscular Hgb 23.9 pg (27.0-31.0); Mean Corpuscular Volume 79.3 fL (81.0-99.0); Mean Platelet Volume 9.1 fL (7.4-10.4); Platelet Count 174 10^3/uL (130-400); Red Blood Cell Count 3.09 10^6/uL (4.20-5.40); Red Cell Dist. Width 16.1 % (11.5-14.5); White Blood Cell Count 4.8 10^3/uL (4.8-10.8)
[2024-08-20 06:27] LABS: Blood Urea Nitrogen 62 mg/dl (7-17); Calcium 8.8 mg/dl (8.4-10.2); Carbon Dioxide 24 mmol/L (22-30); Chloride 107 mmol/L (98-107); Estimated Creatinine Clearance 23 ml/min; Glucose 121 mg/dl (70-99); Sodium 137 mmol/L (135-145); eGFR 23.38
[2024-08-20] MEDS: NOVOLOG FLEXPEN-MODERATE RESISTANCE SC ×2 (06:43→10:47)
--- NOTE | 2024-08-20 07:31 | CON.GI ---
Addendum entered and electronically signed by Lindy Brennan MD 08/20/24 09:36:
pt had appt with Dr Schaefer scheduled 08/18 but had to miss due to hospitalization. office to call and reschedule
Original Note:
Consultation
-
Date/Time Consultation Requested: 08/19/24 at noon
Date/Time Consultation Performed: 08/20/24 at 6am
Requesting Provider: nicki
Performing Provider: belkis
Reason for Consultation: gi symptoms nausea
Medical History
Chief Complaint / HPI
Chief Complaint: diarrhea
History of Present Illness:
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 She states that she started a weight loss drug for obesity and diabetes and had significant diarrhea and weight loss from it. She
ultimately stopped this medication in May and states her diarrhea had continued. This diarrhea was also associated with some abdominal discomfort. She notes that she has had this diarrhea in the past and has always been attributed to poorly
controlled diabetes which she had. This was evaluated in the past at an outside institution. She was admitted with acute renal injury.She denies nausea to me. She does however have fluctuating control of her diabetes. She states that she does
take in lactose. She does have an iron deficiency anemia. She states she has had some workup in the past however our [facility] system does not have any prior scopes.
Past Medical History
Past Medical History: Other (Obesity, chronic kidney disease, diabetes, asthma, hyperlipidemia, hypertension and hypothyroidism)
Past Surgical History: Other (Cholecystectomy, appendectomy)
Social History
Tobacco: Non-Smoker
Family History
Family History: Reviewed & Not Pertinent
Allergies / Home Medications
Allergy/AdvReac Type Severity Reaction Status Date / Time
morphine Allergy red Verified 08/08/24 16:55
flushing,
itchy
penicillin V Allergy Rash; Verified 08/08/24 16:55
TOLERATED
CEFAZOLIN
01/30
potassium Allergy Unknown Verified 08/08/24 16:55
�Medication �Instructions �Recorded
albuterol sulfate 90 mcg/actuation 2 puff inhalation R Q4HPRN PRN 02/06/19
aerosol inhaler (Ventolin HFA) wheezing
amlodipine 5 mg tablet 5 mg PO DAILY 02/06/19
bumetanide 2 mg tablet 1 mg PO DAILY 02/06/19
levothyroxine 137 mcg tablet 137 mcg PO DAILY 02/06/19
nitroglycerin 0.4 mg sublingual 0.4 mg sublingual [id number] PRN 02/06/19
tablet chest pain
ropinirole 2 mg tablet 2 mg PO HS 02/06/19
rosuvastatin 20 mg tablet 20 mg PO DAILY 02/06/19
tramadol 50 mg tablet 50 mg PO Q6H 02/06/19
acetaminophen 650 mg 1,300 mg PO Q6H 08/08/24
tablet,extended release
dapagliflozin propanediol 10 mg 10 mg PO DAILY 08/08/24
tablet (Farxiga)
diclofenac sodium 1 % topical gel 2 g topical DAILYPRN PRN right 08/08/24
shoulder
duloxetine 20 mg capsule,delayed 20 mg PO DAILY 08/08/24
release
insulin glargine 100 unit/mL (3 44 unit SC BID 08/08/24
mL) subcutaneous pen (Basaglar
KwikPen U-100 Insulin)
insulin lispro 100 unit/mL 1 sliding scale dose SC AC 08/08/24
subcutaneous solution (Humalog
U-100 Insulin)
lidocaine 4 % topical patch 4 patch topical HS 08/08/24
lisinopril 40 mg tablet 40 mg PO DAILY 08/08/24
ondansetron 4 mg disintegrating 4 mg PO Q8HPRN PRN nausea and 08/08/24
tablet vomiting
vitamins A,C,H-lofo-sjbvpy 4,296 1 cap PO DAILY 08/08/24
mcg-226 mg-90 mg capsule
(PreserVision AREDS)
phenylephrine HCl 1 % nasal spray 2 spray intranasal BID 08/18/24
([address])
Review of Systems
-
All other systems: A 12 pt ROS was Negative except as stated above in HPI
Vital Signs
Temp Pulse Resp BP Pulse Ox
98.6 F 100 18 135/65 96
08/19/24 23:48 08/19/24 23:48 08/19/24 23:48 08/19/24 23:48 08/19/24 23:48
Physical Exam
Exam
General: Well Developed
Cardiac: S1/S2
GI: Soft, Non Tender and Non Distended
Neuro: Awake, Alert and Oriented
Results
WBC 4.8 10^3/uL (4.8-10.8) 08/20/24 05:26
Hgb 7.4 g/dL (12.0-16.0) L 08/20/24 05:26
Hct 24.5 % (37.0-47.0) L 08/20/24 05:26
MCV 79.3 fL (81.0-99.0) L 08/20/24 05:26
Plt Count 174 10^3/uL (130-400) D 08/20/24 05:26
Absolute Neuts (auto) 6.6 10^3/uL (1.4-6.5) H 08/18/24 12:51
Sodium 137 mmol/L (135-145) 08/20/24 05:26
Potassium 5.0 mmol/L (3.5-5.1) 08/20/24 05:26
Chloride 107 mmol/L (98-107) 08/20/24 05:26
Carbon Dioxide 24 mmol/L (22-30) 08/20/24 05:26
BUN 62 mg/dl (7-17) H 08/20/24 05:26
Creatinine 2.1 mg/dL (0.6-1.0) H 08/20/24 05:26
Calcium 8.8 mg/dl (8.4-10.2) 08/20/24 05:26
Total Bilirubin 0.6 mg/dl (0.2-1.3) 08/18/24 12:51
AST 22 U/L (14-36) 08/18/24 12:51
ALT 15 U/L (0-35) 08/18/24 12:51
Alkaline Phosphatase 91 U/L (38-126) 08/18/24 12:51
Lipase 190 U/L (23-300) 08/18/24 12:51
Assessment / Plan
-
This patient is an 78-year-old woman who has a history of chronic kidney disease and diabetes. She was admitted with left flank pain and hypotension. She also admits to chronic diarrhea, intermittently controlled diabetes and has labs that show
iron deficiency anemia. For now would do the following
1. Despite the chart the patient denies nausea to me and says she feels better than when she was admitted.
2. Her diarrhea has stopped. She does think this was due to her weight loss medication or diabetes.
3. She does have iron deficiency anemia on labs in the hospital. She does state that she had a colonoscopy approximately 5 years ago at an outside institution that was normal. We do not have that record. She will need a workup but prefers this be
done as an outpatient. She states she has seen Dr. Schaefer in the past. This is acceptable as she is not bleeding.
The patient wants to defer GI workup as an inpatient and I did discuss this with Dr. Shetty.
I will sign off call with questions.
-
-
Thank you for consultation and allowing me to participate in the patient's care. Please call the information systems project manager GI physician during the after hours with any questions or concerns.
[2024-08-20 07:52] VITALS: BP 135/69
[2024-08-20 08:07] LABS: Glucose - Point of Care 103 mg/dl (70-99)
[2024-08-20] MEDS: LANTUS SC (08:23)
[2024-08-20] MEDS: HEPARIN SC (08:23)
[2024-08-20] MEDS: CYMBALTA DELAYED RELEASE 20 MG PO (08:24)
[2024-08-20] MEDS: CRESTOR 10 MG PO (08:24)
[2024-08-20] MEDS: PROTONIX 40 MG PO (08:24)
--- NOTE | 2024-08-20 09:29 | W.PN.HOSP.TC ---
Today's Communication/Plan
-
await nephrology input
Discontinue further IV fluid
Follow-up ultrasound abdomen report
MRI L-spine declined
Possible discharge later today to home health
Assessment / Plan
Assessment / Plan
Acute Kidney Injury on CKD III
- Suspect Pre-Renal due to poor oral intake
- Patient was attempted to have AV fistula placed in the past for potential need of ESRD although renal function improved and never required dialysis. This was in [place] few years back.
- Hold nephrotoxic medication
- CT a/p did not show any acute issues
- was hypotensive in PCP office , has improved
- Patient have follow-up with nephrology office at end of the month.
Persistent Nausea
Iron deficiency anemia
Microcytic anemia
-Add Protonix
-GI evaluated and patient declined to get EGD at this point. Patient wants to follow-up with GI/Dr. Schaefer in office
-Will provide iron pills at discharge and repeat blood work outpt
-US abd ordered to r/o Liver/gb issues
Bilateral flank pain
Lumbar vacuum disc phenomenon
-CT a/p images reviewed and have air post to L3 body, increased in size from previous imaging
-Patient does not want MR L-spine.
-Continue Duloxetine
Diabetes Mellitus, Type II
-Continue decreased dose of glargine in setting of ADEOLA
-Monitor sugars and continue coverage insulin
Essential Hypertension
-Resume Norvasc. Continue holding lisinopril
Hyperlipidemia-Continue rosuvastatin
Hypothyroidism-continue levothyroxine
Anemia of Chronic Disease-Hgb at baseline
Asthma-Continue albuterol PRN
Restless Leg Syndrome-Continue ropinirole
Cirrhosis-Incidental finding from prior admission
Morbid Obesity due to Excess Calories -Affects all aspects fo care
DVT proph: SC Heparin
Code Status: Full Code
Anticipated Discharge: Today
Subjective/Interval History
-
Date of Service: August 20, 2024
Denies of having any vomiting episode overnight
Continues to have nausea
Some right arm pain
Bilateral flank pain is better
Objective Data
-
Labs:
Laboratory Results
08/20/24
05:26
WBC 4.8
Hgb 7.4 L
Hct 24.5 L
Plt Count 174 D
Sodium 137
Potassium 5.0
Chloride 107
Carbon Dioxide 24
BUN 62 H
Creatinine 2.1 H
Glucose 121 H
Calcium 8.8
Vital Signs:
Vital Signs
Temp Pulse Resp BP Pulse Ox
97.8 F 86 18 135/69 96
08/20/24 07:52 08/20/24 07:52 08/20/24 07:52 08/20/24 07:52 08/20/24 07:52
I&O
08/19/24 08/20/24 08/21/24
05:59 06:59 06:59
Intake Total
Output Total
Balance
Review of Systems
-
Respiratory: Reports No Symptoms
Cardiac: Reports No Symptoms
Abdomen/GI: Reports No Symptoms
Physical Exam
-
General: No Apparent Distress and Comfortable
HEENT: Negative Oxygen
Respiratory: Clear to Auscultation
Cardiac: Regular Rhythm and S1/S2; Negative Murmur or Rub
GI: Soft, Nontender, Nondistended and Normal Bowel Sounds
Musculoskeletal: No Edema
Neuro: Awake, Alert, Oriented, No Motor Deficits and Nonfocal/Grossly Intact
Psych: Calm
[2024-08-20] MEDS: NSS IV (10:07)
[2024-08-20 10:48] LABS: Glucose - Point of Care 104 mg/dl (70-99)
[2024-08-20 11:45] VITALS: BP 102/48
[2024-08-20] MEDS: NORVASC PO (12:04)
--- NOTE | 2024-08-20 13:51 | W.PN.NEPH.PH ---
Today's Communication / Plan
-
see plan
Assessment/Plan
-
Impression:
Acute kidney injury (3.0)
Chronic kidney disease stage IIIB (1.6)
Left lower abdominal pain and left flank pain
History of nephrolithiasis with recent spontaneous stone passage last week
Recent pneumonia diagnosis: completed Cefdinir, and doxycycline
History of hepatic cirrhosis
History of hypertension
Diabetes (Insulin requiring)
Morbid obesity
Hypothyroidism
Asthma
Anemia
Plan:
ADEOLA:
-Likely due to prerenal stimulus given hypotension on presentation
cr better close to baseline and non oliguric, follow bladder scan
d/c IVF today
UA bland and U eosinophil neg
CAT scan on admission shows no evidence of obstructive uropathy
BP low normal range, cont to Holding antihypertensives
resume bumex from tomorrow
anemia-hb low likely dilutional, fe sat low at 11, ferritin only 7.8
likely benefit from IV fe course out pt, start po iron for now
BMP in 2-3days
f/u Dr Rivas this month as scheduled
-
-
Date of Service: August 20, 2024
CC / HPI / ROS
-
Chief Complaint:
ADEOLA with CKD
History of Present Illness:
cr better at 2.1 non oliguric
hb low 7.4
BP stable
no fever
Review of Systems:
no cp or sob
no n/v
Labs
-
Labs:
WBC 4.8 10^3/uL (4.8-10.8) 08/20/24 05:26
RBC 3.09 10^6/uL (4.20-5.40) L 08/20/24 05:26
Hgb 7.4 g/dL (12.0-16.0) L 08/20/24 05:26
Hct 24.5 % (37.0-47.0) L 08/20/24 05:26
Plt Count 174 10^3/uL (130-400) D 08/20/24 05:26
Sodium 137 mmol/L (135-145) 08/20/24 05:26
Potassium 5.0 mmol/L (3.5-5.1) 08/20/24 05:26
Chloride 107 mmol/L (98-107) 08/20/24 05:26
Carbon Dioxide 24 mmol/L (22-30) 08/20/24 05:26
BUN 62 mg/dl (7-17) H 08/20/24 05:26
Creatinine 2.1 mg/dL (0.6-1.0) H 08/20/24 05:26
eGFR 23.38 08/20/24 05:26
Glucose 121 mg/dl (70-99) H 08/20/24 05:26
Calcium 8.8 mg/dl (8.4-10.2) 08/20/24 05:26
Albumin 4.5 g/dl (3.5-5.0) 08/18/24 12:51
Physical Exam
-
Vital Signs:
Vital Signs
Temp Pulse Resp BP Pulse Ox
97.8 F 92 18 102/48 96
08/20/24 07:52 08/20/24 11:45 08/20/24 07:52 08/20/24 11:45 08/20/24 07:52
Cardiovascular:: Regular rate and rhythm
Respiratory:: Bilateral: CTA
Lung Excursion:: Normal
Abdomen:: Nontender and Soft
Extremity Edema:: None: Bilateral:
Pyle Catheter: No
[2024-08-20 15:45] VITALS: BP 155/59
[2024-08-20 16:36] LABS: Hematocrit 26.8 % (37.0-47.0); Mean Corp Hgb Conc. 29.9 g/dL (33.0-37.0); Mean Corpuscular Hgb 24.1 pg (27.0-31.0); Mean Corpuscular Volume 80.7 fL (81.0-99.0); Platelet Count 191 10^3/uL (130-400); Red Blood Cell Count 3.32 10^6/uL (4.20-5.40); Red Cell Dist. Width 16.3 % (11.5-14.5); White Blood Cell Count 4.5 10^3/uL (4.8-10.8)
[2024-08-20 16:54] LABS: Glucose - Point of Care 248 mg/dl (70-99)
[2024-08-20] MEDS: CILOXAN 0.3% OPHTHALMIC SOLUTION 1 DROP OPHTH ×2 (17:20→21:41)
[2024-08-20] MEDS: NOVOLOG FLEXPEN-MODERATE RESISTANCE 3 UNITS SC (17:21)
[2024-08-20 21:20] LABS: Glucose - Point of Care 196 mg/dl (70-99)
[2024-08-20] MEDS: LANTUS 0.22 UNITS SC (21:41)
[2024-08-20] MEDS: REQUIP 2 MG PO (21:41)
[2024-08-20] MEDS: LIDOCAINE 4% PATCH 3 PATCH TOPICAL (21:49)
[2024-08-20 23:00] VITALS: BP 133/71
[2024-08-21] MEDS: TYLENOL 650 MG PO ×5 (00:28→23:46)
[2024-08-21] MEDS: OCEAN, SALINE MIST 2 SPRAYS NASAL ×3 (00:28→23:50)
[2024-08-21] MEDS: CILOXAN 0.3% OPHTHALMIC SOLUTION 1 DROP OPHTH ×7 (00:29→23:46)
[2024-08-21] MEDS: SYNTHROID 137 MCG PO (05:21)
[2024-08-21 05:39] VITALS: BMI 38.6
[2024-08-21 06:35] LABS: Hematocrit 28.3 % (37.0-47.0); Hemoglobin 8.2 g/dL (12.0-16.0); Mean Corpuscular Hgb 23.3 pg (27.0-31.0); Mean Corpuscular Volume 80.4 fL (81.0-99.0); Mean Platelet Volume 9.2 fL (7.4-10.4); Platelet Count 177 10^3/uL (130-400); Red Blood Cell Count 3.52 10^6/uL (4.20-5.40); Red Cell Dist. Width 16.3 % (11.5-14.5); White Blood Cell Count 4.3 10^3/uL (4.8-10.8)
[2024-08-21 07:00] VITALS: BP 147/74
[2024-08-21 07:01] LABS: Blood Urea Nitrogen 44 mg/dl (7-17); Carbon Dioxide 24 mmol/L (22-30); Chloride 104 mmol/L (98-107); Estimated Creatinine Clearance 28 ml/min; Glucose 117 mg/dl (70-99); Potassium 5.3 mmol/L (3.5-5.1); Sodium 138 mmol/L (135-145); eGFR 30.13
[2024-08-21 08:05] LABS: Glucose - Point of Care 125 mg/dl (70-99)
[2024-08-21] MEDS: NOVOLOG FLEXPEN-MODERATE RESISTANCE SC (08:10)
[2024-08-21] MEDS: PROTONIX 40 MG PO (08:25)
[2024-08-21] MEDS: NORVASC 5 MG PO (08:25)
[2024-08-21] MEDS: LANTUS 0.22 UNITS SC ×2 (08:25→21:25)
[2024-08-21] MEDS: CYMBALTA DELAYED RELEASE 20 MG PO (08:25)
[2024-08-21] MEDS: CRESTOR 10 MG PO (08:25)
[2024-08-21] MEDS: BUMEX 1 MG PO (08:43)
[2024-08-21 08:45] VITALS: BP 159/62; PULSE 86; O2SAT 99
[2024-08-21 11:44] LABS: Glucose - Point of Care 194 mg/dl (70-99)
[2024-08-21] MEDS: NOVOLOG FLEXPEN-MODERATE RESISTANCE 1 UNITS SC (11:52)
[2024-08-21] MEDS: ZOFRAN 4 MG IV (11:58)
[2024-08-21] MEDS: MIRALAX 17 GRAMS PO (12:22)
--- NOTE | 2024-08-21 12:26 | PTCARENOTE ---
Patient with complaints of dizziness when standing with some nausea. BP checked - sitting 140/86 and standing 105/70. MD made aware. Zofran given. Patient also states that she feels constipated. MD aware and Miralax ordered and given.
--- NOTE | 2024-08-21 12:35 | W.PN.NEPH.PH ---
Today's Communication / Plan
-
follow BMP
Assessment/Plan
-
Impression:
Acute kidney injury (3.0)
Chronic kidney disease stage IIIB (1.6)
Left lower abdominal pain and left flank pain
History of nephrolithiasis with recent spontaneous stone passage last week
Recent pneumonia diagnosis: completed Cefdinir, and doxycycline
History of hepatic cirrhosis
History of hypertension
Diabetes (Insulin requiring)
Morbid obesity
Hypothyroidism
Asthma
Anemia
Plan:
follow BMP
lokelma 5gm
reduce bumex
-
-
Date of Service: August 21, 2024
CC / HPI / ROS
-
Chief Complaint:
ADEOLA with CKD
History of Present Illness:
cr better at 1.7 non oliguric
K up 5.3
BP stable
no fever
Review of Systems:
no cp or sob
no n/v
LH going to BR
Labs
-
Labs:
WBC 4.3 10^3/uL (4.8-10.8) L 08/21/24 05:22
RBC 3.52 10^6/uL (4.20-5.40) L 08/21/24 05:22
Hgb 8.2 g/dL (12.0-16.0) L 08/21/24 05:22
Hct 28.3 % (37.0-47.0) L 08/21/24 05:22
Plt Count 177 10^3/uL (130-400) 08/21/24 05:22
Sodium 138 mmol/L (135-145) 08/21/24 05:22
Potassium 5.3 mmol/L (3.5-5.1) H 08/21/24 05:22
Chloride 104 mmol/L (98-107) 08/21/24 05:22
Carbon Dioxide 24 mmol/L (22-30) 08/21/24 05:22
BUN 44 mg/dl (7-17) H 08/21/24 05:22
Creatinine 1.7 mg/dL (0.6-1.0) H 08/21/24 05:22
eGFR 30.13 08/21/24 05:22
Glucose 117 mg/dl (70-99) H 08/21/24 05:22
Calcium 9.0 mg/dl (8.4-10.2) 08/21/24 05:22
Albumin 4.5 g/dl (3.5-5.0) 08/18/24 12:51
Physical Exam
-
Vital Signs:
Vital Signs
Temp Pulse Resp BP Pulse Ox
97.5 F 86 16 147/74 99
08/21/24 07:00 08/21/24 07:00 08/21/24 07:00 08/21/24 07:00 08/21/24 07:20
Cardiovascular:: Regular rate and rhythm
Respiratory:: Bilateral: CTA
Lung Excursion:: Normal
Abdomen:: Nontender and Soft
Bowel Sounds:: Normal
Extremity Edema:: None: Bilateral:
[2024-08-21] MEDS: LOKELMA 5 GRAM PO (13:11)
--- NOTE | 2024-08-21 14:32 | W.PN.HOSP.TC ---
Today's Communication/Plan
-
monitor BP and K overnight
adjust bumex
cr improving
Assessment / Plan
Assessment / Plan
Acute Kidney Injury on CKD III
- Suspect Pre-Renal due to poor oral intake
- Patient was attempted to have AV fistula placed in the past for potential need of ESRD although renal function improved and never required dialysis. This was in [place] few years back.
- Hold nephrotoxic medication
- CT a/p did not show any acute issues
- was hypotensive in PCP office , has improved
-restarted bumex 1mg initially but now dose decreased to 1mg TID weekly.
- Patient have follow-up with nephrology office at end of the month.
Mild hyperkalemia
-diuretics should help
-dose of lokelma
Persistent Nausea
Iron deficiency anemia
Microcytic anemia
-Add Protonix
-GI evaluated and patient declined to get EGD at this point. Patient wants to follow-up with GI/Dr. Schaefer in office
-Will provide iron pills at discharge and repeat blood work outpt
-US abd ordered to r/o Liver/gb issues
Bilateral flank pain
Lumbar vacuum disc phenomenon
-CT a/p images reviewed and have air post to L3 body, increased in size from previous imaging
-Patient does not want MR L-spine.
-Continue Duloxetine
Diabetes Mellitus, Type II
-Continue decreased dose of glargine in setting of ADEOLA
-Monitor sugars and continue coverage insulin. POC 125
Essential Hypertension
-Resume Norvasc. Continue holding lisinopril
Hyperlipidemia-Continue rosuvastatin
Hypothyroidism-continue levothyroxine
Anemia of Chronic Disease-Hgb at baseline
Asthma-Continue albuterol PRN
Restless Leg Syndrome-Continue ropinirole
Cirrhosis-Incidental finding from prior admission
Morbid Obesity due to Excess Calories -Affects all aspects fo care
DVT proph: SC Heparin
Code Status: Full Code
Anticipated Discharge: Within 24 hours
Subjective/Interval History
-
Date of Service: August 21, 2024
Patient felt dizziness after being started on Bumex
Tolerating diet
Objective Data
-
Labs:
Laboratory Results
08/21/24
05:22
WBC 4.3 L
Hgb 8.2 L
Hct 28.3 L
Plt Count 177
Sodium 138
Potassium 5.3 H
Chloride 104
Carbon Dioxide 24
BUN 44 H
Creatinine 1.7 H
Glucose 117 H
Calcium 9.0
Vital Signs:
Vital Signs
Temp Pulse Resp BP Pulse Ox
97.5 F 86 16 147/74 99
08/21/24 07:00 08/21/24 07:00 08/21/24 07:00 08/21/24 07:00 08/21/24 07:20
I&O
08/20/24 08/21/24 08/22/24
06:59 06:59 06:59
Intake Total 240 / 240
Output Total 300 / 300
Balance -60 / -60
Physical Exam
-
General: No Apparent Distress, Comfortable and Morbidly Obese
HEENT: Negative Oxygen
Respiratory: Clear to Auscultation
Cardiac: Regular Rhythm and S1/S2; Negative Murmur or Rub
GI: Soft, Nontender, Nondistended and Normal Bowel Sounds
Musculoskeletal: No Edema
Neuro: Awake, Alert, Oriented, No Motor Deficits and Nonfocal/Grossly Intact
Psych: Calm
--- NOTE | 2024-08-21 14:34 | VNURNOTE ---
Chart reviewed. Does not appear that patient is going home on new meds. She does not have new dx of DM. No skilled nurse needs identified. [facility] liaison spoke with patient. Explained [facility] services: intermittent, skilled. Patient stated she manages
her DM independently. She is interested in starting outpt PT at [facility]. Her can drive her. No [facility] referral placed. JEIMY Ramos notified.
[2024-08-21] MEDS: FERRLECIT 110 MG IV (14:42)
[2024-08-21 15:00] VITALS: BP 124/74
[2024-08-21 16:21] LABS: Glucose - Point of Care 203 mg/dl (70-99)
--- NOTE | 2024-08-21 16:21 | CM ---
Spoke with pt and in room .
Pt initially requested [facility] then said she would set up out pt PT herself.
Her will drive her home at [place].
IMM reviewed signed on chart.
PLAN Home no needs
[2024-08-21] MEDS: NOVOLOG FLEXPEN-MODERATE RESISTANCE 3 UNITS SC (16:26)
[2024-08-21 21:24] LABS: Glucose - Point of Care 297 mg/dl (70-99)
[2024-08-21] MEDS: LIDOCAINE 4% PATCH 3 PATCH TOPICAL (21:24)
[2024-08-21] MEDS: REQUIP 2 MG PO (21:24)
[2024-08-21 23:42] VITALS: BP 131/67
[2024-08-22 01:07] VITALS: PULSE 80
[2024-08-22] MEDS: ULTRAM 50 MG PO (01:35)
[2024-08-22 03:04] VITALS: PULSE 83
[2024-08-22] MEDS: DILAUDID 0.25 MG IV (04:33)
[2024-08-22] MEDS: CILOXAN 0.3% OPHTHALMIC SOLUTION 1 DROP OPHTH ×4 (04:33→17:11)
[2024-08-22] MEDS: SYNTHROID 137 MCG PO (04:47)
[2024-08-22 05:26] VITALS: BMI 38.3
[2024-08-22] MEDS: TYLENOL 650 MG PO ×2 (06:01→11:31)
[2024-08-22 06:37] LABS: Hematocrit 29.5 % (37.0-47.0); Hemoglobin 8.7 g/dL (12.0-16.0); Mean Corp Hgb Conc. 29.5 g/dL (33.0-37.0); Mean Corpuscular Hgb 23.7 pg (27.0-31.0); Mean Corpuscular Volume 80.4 fL (81.0-99.0); Mean Platelet Volume 9.4 fL (7.4-10.4); Platelet Count 189 10^3/uL (130-400); Red Blood Cell Count 3.67 10^6/uL (4.20-5.40); Red Cell Dist. Width 16.3 % (11.5-14.5); White Blood Cell Count 6.5 10^3/uL (4.8-10.8)
[2024-08-22 07:30] LABS: Blood Urea Nitrogen 41 mg/dl (7-17); Calcium 9.1 mg/dl (8.4-10.2); Carbon Dioxide 25 mmol/L (22-30); Chloride 105 mmol/L (98-107); Estimated Creatinine Clearance 25 ml/min; Glucose 131 mg/dl (70-99); Potassium 4.9 mmol/L (3.5-5.1); Sodium 138 mmol/L (135-145); eGFR 26.36
[2024-08-22 07:53] LABS: Glucose - Point of Care 125 mg/dl (70-99)
[2024-08-22 07:55] VITALS: BP 148/85
[2024-08-22] MEDS: NOVOLOG FLEXPEN-MODERATE RESISTANCE SC (07:56)
[2024-08-22] MEDS: LANTUS 0.22 UNITS SC (08:26)
[2024-08-22] MEDS: MIRALAX 17 GRAMS PO (08:27)
[2024-08-22] MEDS: CYMBALTA DELAYED RELEASE 20 MG PO (08:27)
[2024-08-22] MEDS: PROTONIX 40 MG PO (08:27)
[2024-08-22] MEDS: NORVASC 5 MG PO (08:27)
[2024-08-22] MEDS: CRESTOR 10 MG PO (08:56)
[2024-08-22 09:40] VITALS: BP 149/74; PULSE 98; O2SAT 100
--- NOTE | 2024-08-22 12:20 | W.PN.HOSP.TC ---
Today's Communication/Plan
-
OP gi f/u
bumex
Assessment / Plan
Assessment / Plan
General: No Apparent Distress, Comfortable and Morbidly Obese
HEENT: Negative Oxygen
Respiratory: Clear to Auscultation
Cardiac: Regular Rhythm and S1/S2; Negative Murmur or Rub
GI: Soft, Nontender, Nondistended and Normal Bowel Sounds
Musculoskeletal: No Edema
Neuro: Awake, Alert, Oriented, No Motor Deficits and Nonfocal/Grossly Intact
Psych: Calm
Acute Kidney Injury on CKD III
- Suspect Pre-Renal due to poor oral intake
- Patient was attempted to have AV fistula placed in the past for potential need of ESRD although renal function improved and never required dialysis. This was in [place] few years back.
- Hold nephrotoxic medication
- CT a/p did not show any acute issues
- was hypotensive in PCP office , has improved
-restarted bumex 1mg initially but now dose decreased to 1mg TID weekly.
- Patient have follow-up with nephrology office at end of the month.
Mild hyperkalemia
-diuretics should help
-dose of lokelma
-resolved
Persistent Nausea
Iron deficiency anemia
Microcytic anemia
-Add Protonix
-GI evaluated and patient declined to get EGD at this point. Patient wants to follow-up with GI/Dr. Schaefer in office
-Will provide iron pills at discharge and repeat blood work outpt
Bilateral flank pain
Lumbar vacuum disc phenomenon
-CT a/p images reviewed and have air post to L3 body, increased in size from previous imaging
-Patient does not want MR L-spine.
-Continue Duloxetine
Diabetes Mellitus, Type II
-Continue decreased dose of glargine in setting of ADEOLA
-Monitor sugars and continue coverage insulin. POC 125
Essential Hypertension
-Resume Norvasc. Continue holding lisinopril
Hyperlipidemia-Continue rosuvastatin
Hypothyroidism-continue levothyroxine
Anemia of Chronic Disease-Hgb at baseline
Asthma-Continue albuterol PRN
Restless Leg Syndrome-Continue ropinirole
Cirrhosis-Incidental finding from prior admission. op F/U with Dr. Schaefer.
Morbid Obesity due to Excess Calories -Affects all aspects fo care
DVT proph: SC Heparin
Code Status: Full Code
PT/OT-home health.
More than 30 minutes spent in discharge including
Final examination of the patient
Summarizing hospital stay
Instructions for continuing care to all relevant caregivers
Preparation of discharge records, prescriptions, and referral forms
Total time spent (in minutes): 45
Anticipated Discharge: Today
Subjective/Interval History
-
Date of Service: August 22, 2024
denies dizziness
Objective Data
-
Labs:
Laboratory Results
08/22/24
05:23
WBC 6.5
Hgb 8.7 L
Hct 29.5 L
Plt Count 189
Sodium 138
Potassium 4.9
Chloride 105
Carbon Dioxide 25
BUN 41 H
Creatinine 1.9 H
Glucose 131 H
Calcium 9.1
Vital Signs:
Vital Signs
Temp Pulse Resp BP Pulse Ox
97.9 F 88 16 148/85 99
08/22/24 07:55 08/22/24 07:55 08/22/24 07:55 08/22/24 07:55 08/22/24 07:55
I&O
08/21/24 08/22/24 08/23/24
06:59 06:59 06:59
Intake Total 240 / 240 1300 / 1300
Output Total 300 / 300
Balance -60 / -60 1300 / 1300
[2024-08-22 12:23] LABS: Glucose - Point of Care 177 mg/dl (70-99)
--- NOTE | 2024-08-22 12:23 | W.PN.NEPH.PH ---
Today's Communication / Plan
-
dc
Assessment/Plan
-
Impression:
Acute kidney injury (3.0)
Chronic kidney disease stage IIIB (1.6)
Left lower abdominal pain and left flank pain
History of nephrolithiasis with recent spontaneous stone passage last week
Recent pneumonia diagnosis: completed Cefdinir, and doxycycline
History of hepatic cirrhosis
History of hypertension
Diabetes (Insulin requiring)
Morbid obesity
Hypothyroidism
Asthma
Anemia
Plan:
follow BMP
on reduced bumex
for dc
-
-
Date of Service: August 22, 2024
CC / HPI / ROS
-
Chief Complaint:
ADEOLA with CKD
History of Present Illness:
Cr stable at 1.9
K down to 4.9
BP stable
no fever
hgb stable 8.7
Review of Systems:
no cp or sob
no n/v
Labs
-
Labs:
WBC 6.5 10^3/uL (4.8-10.8) 08/22/24 05:23
RBC 3.67 10^6/uL (4.20-5.40) L 08/22/24 05:23
Hgb 8.7 g/dL (12.0-16.0) L 08/22/24 05:23
Hct 29.5 % (37.0-47.0) L 08/22/24 05:23
Plt Count 189 10^3/uL (130-400) 08/22/24 05:23
Sodium 138 mmol/L (135-145) 08/22/24 05:23
Potassium 4.9 mmol/L (3.5-5.1) 08/22/24 05:23
Chloride 105 mmol/L (98-107) 08/22/24 05:23
Carbon Dioxide 25 mmol/L (22-30) 08/22/24 05:23
BUN 41 mg/dl (7-17) H 08/22/24 05:23
Creatinine 1.9 mg/dL (0.6-1.0) H 08/22/24 05:23
eGFR 26.36 08/22/24 05:23
Glucose 131 mg/dl (70-99) H 08/22/24 05:23
Calcium 9.1 mg/dl (8.4-10.2) 08/22/24 05:23
Albumin 4.5 g/dl (3.5-5.0) 08/18/24 12:51
Physical Exam
-
Vital Signs:
Vital Signs
Temp Pulse Resp BP Pulse Ox
97.9 F 88 16 148/85 99
08/22/24 07:55 08/22/24 07:55 08/22/24 07:55 08/22/24 07:55 08/22/24 07:55
--- NOTE | 2024-08-22 12:35 | W.DCSUMMARY ---
Discharge Summary
Discharge Data
Date of Admission: 08/18/24
Date of Discharge: 08/22/24
-
Pending Results: No
Hospital Course
78-year-old female past medical history of CKD, anemia, diabetes mellitus, hypertension, hyperlipidemia, hypothyroidism, asthma, restless leg syndrome, cirrhosis, morbid obesity excess calories who is here with ADEOLA on CKD. Patient was eval by
nephrology. Patient was also eval by gastroenterology. Patient ADEOLA was seen prerenal due to decrease in p.o. intake. Patient evaluated by gastroenterology. Patient without any active bleeding. Patient refused endoscopy and states she will
follow-up with Dr. Schafeer in the office. Patient underwent CT abdomen pelvis which did not show any acute issues. Patient creatinine slowly down trended. PPI was added. Iron tablets were added. Patient insulin requirement decreased. Lantus was
decreased to 22 units twice daily. Blood pressure was holding. Norvasc was continued. Lisinopril was discontinued. Bumex 1 mg frequency was decreased to 3 times daily weekly. Patient was eval by physical and Occupational Therapy. Patient
creatinine was 1.9 on day of discharge. Discussed case with nephrology and okay for discharge with outpatient follow-up. Patient was recommend to follow-up with Dr. 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
Discharge Plan
-
Patient Disposition: Home with Home Care
Discharge Diagnosis/Procedures: Acute kidney injury on chronic kidney disease 3B
Mild hyperkalemia
Persistent nausea
Deficiency anemia
Bilateral flank pain
Condition: Fair
Diet: Diabetic, Carb Controlled
Activity: With assistance and As tolerated
Driving Restrictions: As prior to admission
Blood Work: CBC AND BMP in 1 week via primary doctor
Other Services: VN
Referrals:
Car Schaefer MD [Active] - None (Follow-up for iron deficiency anemia and chronic liver disease. Call to make appointment.)
Racquel Srivastava MD [Family Provider] - in less than 1 week
Additional Discharge Medication Instructions: Lisinopril was discontinued
Lantus dose was decreased to 22 units
Bumex 1 mg frequency was decreased to Wednesday, Wednesday and Wednesday only
Prescriptions:
New
pantoprazole 40 mg Tablet,Delayed Release (Dr/Ec)
40 mg PO DAILY Qty: 30 0RF
ferrous sulfate 324 mg (65 mg iron) tablet,delayed release (DR/EC)
324 mg PO DAILY Qty: 30 0RF
bumetanide 1 mg tablet
1 mg PO MOWEFR@0800 Qty: 30 0RF
Continued
tramadol 50 MG tablet
50 mg PO Q6H
nitroglycerin 0.4 MG tablet, sublingual
0.4 mg sublingual [id number] PRN (Reason: chest pain)
albuterol sulfate [Ventolin HFA] 90 MCG/PUFF HFA aerosol inhaler
2 puff inhalation R Q4HPRN PRN (Reason: wheezing)
levothyroxine 137 MCG tablet
137 mcg PO DAILY
amlodipine 5 MG tablet
5 mg PO DAILY
ropinirole 2 MG tablet
2 mg PO HS
rosuvastatin 20 MG tablet
20 mg PO DAILY
lidocaine 4 % Adhesive Patch,Medicated
4 patch TOPICAL HS
Patient Comments:
08/08/24: 1 on R shoulder, 1 on R upper arm, 2 on back
insulin lispro [Humalog U-100 Insulin] 100 unit/mL Solution
1 sliding scale dose SC AC
Patient Comments:
08/18/24: patient states she takes 1-2 units per dose
duloxetine 20 mg Capsule,Delayed Release(Dr/Ec)
20 mg PO DAILY
PreserVision AREDS 4,296 mcg-226 mg-90 mg Capsule
1 cap PO DAILY
diclofenac sodium 1 % Gel
2 g TOPICAL DAILYPRN PRN (Reason: right shoulder)
dapagliflozin propanediol [Farxiga] 10 mg Tablet
10 mg PO DAILY
ondansetron 4 mg tablet,disintegrating
4 mg PO Q8HPRN PRN (Reason: nausea and vomiting)
[address] 1 % [place],Non-Aerosol
2 spray INTRANASAL BID
Changed
acetaminophen 650 mg Tablet Extended Release
1,000 mg PO TID Qty: 0 0RF
insulin glargine [Basaglar KwikPen U-100 Insulin] 100 unit/mL (3 mL) Insulin Pen
22 unit SC BID Qty: 0 0RF
Patient Comments:
08/18/24: patients states she took 22 units today but normally takes 44 units per dose
Discontinued
bumetanide 2 MG tablet
1 mg PO DAILY
lisinopril 40 mg Tablet
40 mg PO DAILY
Discharge Orders:
Discharge Patient (As Directed); Ordered 08/22/24
Ordered By: Ludin Camacho
Discharge Date and Time
Print Language: GERMAN
[2024-08-22] MEDS: NOVOLOG FLEXPEN-MODERATE RESISTANCE 1 UNITS SC (12:44)
[2024-08-22] MEDS: FERRLECIT 110 MG IV (13:29)
--- NOTE | 2024-08-22 14:05 | CM ---
MD entered order for discharge
Offered VN she said she has a script at home that she will set up out pt PT near her.
Juliano or son drive her home.
IMM reviewed yesterday signed on chart.
PLAN Home no needs
--- NOTE | 2024-08-22 15:36 | PTCARENOTE ---
Addendum entered by Chery Jimenez RN 08/22/24 17:12:
Patient left via wheelchair with staff escort accompanied by son. Son to transport patient home.
Original Note:
Reviewed discharge instructions with patient. Patient verbalizes understanding of all teaching. Answered all questions. IV removed after IV iron given. Awaiting transport home.
[2024-08-22 15:55] VITALS: BP 125/79
[2024-08-22 16:53] LABS: Glucose - Point of Care 259 mg/dl (70-99)
[2024-08-22] MEDS: NOVOLOG FLEXPEN-MODERATE RESISTANCE 5 UNITS SC (17:11)
== END 2024-08-22 17:17 | disposition home or self-care (01) | DRG 684 ==
LOC: 4 EAST ACU 16:56
PROVIDERS: Hospitalist; Physician Assistant; Physician Assistant Medical; ADMITTING PHYSICIAN Hospitalist; ATTENDING PHYSICIAN Hospitalist; CONSULT PHYSICIAN Internal Medicine; EMERGENCY PHYSICIAN Student in an Organized Health Care Education/Training Program; FAMILY PHYSICIAN Student in an Organized Health Care Education/Training Program; OTHER PHYSICIAN Specialist
DX: N17.9 Acute kidney failure, unspecified (principal); I95.9 Hypotension, unspecified; E11.22 Type 2 diabetes mellitus with diabetic chronic kidney disease; I12.9 Hypertensive chronic kidney disease with stage 1 through stage 4 chronic kidney disease, or unspecified chronic kidney disease; E78.5 Hyperlipidemia, unspecified; E03.9 Hypothyroidism, unspecified; D63.8 Anemia in other chronic diseases classified elsewhere; J45.909 Unspecified asthma, uncomplicated; G25.81 Restless legs syndrome; K74.60 Unspecified cirrhosis of liver; E66.01 Morbid (severe) obesity due to excess calories; Z68.38 Body mass index [BMI] 38.0-38.9, adult; D53.9 Nutritional anemia, unspecified; E87.5 Hyperkalemia; D50.9 Iron deficiency anemia, unspecified; Z79.4 Long term (current) use of insulin; Z79.899 Other long term (current) drug therapy; N18.32 Chronic kidney disease, stage 3b
CPT/HCPCS: 74176; 76700; 80048; 80053; 81003; 81099; 82728; 82962; 83540; 83550; 83690; 83735; 85025; 85027; 93005; 94660; 96361; 96374; 96375; 97162; 97166; 97530; 97535; 99284; J2916

== ENCOUNTER → 2024-09-04 15:41 | Outpatient (REF) | payer MEDICARE, OTHER, SELFPAY ==
[2024-09-04 16:21] LABS: % Basophils 0.6 % (0-2); % Eosinophils 0.9 % (0-6); % Immature Granulocytes 0.7 % (0-0.5); % Lymphocytes 22.8 % (20.5-51.1); % Monocytes 6.4 % (1.7-9.3); % Neutrophils 68.6 % (42.2-75.2); Absolute Basophils 0.1 10^3/uL (0-0.2); Absolute Eosinophils 0.1 10^3/uL (0-0.7); Absolute Immature Granulocytes 0.1 10^3/uL (0-0.05); Absolute Lymphocytes 2.3 10^3/uL (1.2-3.4); Absolute Monocytes 0.7 10^3/uL (0.1-0.6); Absolute Neutrophils 6.9 10^3/uL (1.4-6.5); Hematocrit 33.3 % (37.0-47.0); Mean Corpuscular Hgb 24.3 pg (27.0-31.0); Mean Platelet Volume 8.8 fL (7.4-10.4); Nucleated Red Blood Cells % 0 %; Platelet Count 292 10^3/uL (130-400); Red Blood Cell Count 4.11 10^6/uL (4.20-5.40); Red Cell Dist. Width 20.4 % (11.5-14.5); White Blood Cell Count 10.1 10^3/uL (4.8-10.8)
[2024-09-04 16:36] LABS: Albumin 4.8 g/dl (3.5-5.0); Blood Urea Nitrogen 36 mg/dl (7-17); Calcium 9.9 mg/dl (8.4-10.2); Carbon Dioxide 23 mmol/L (22-30); Chloride 105 mmol/L (98-107); Glucose 216 mg/dl (70-99); Iron 54 ug/dl (37-170); Phosphorus 3.8 mg/dl (2.5-4.5); Potassium 4.7 mmol/L (3.5-5.1); Sodium 142 mmol/L (135-145)
[2024-09-04 16:45] LABS: Percent Saturation 13 % (20-50); Total Iron Binding Capacity 413 ug/dl (265-497)
[2024-09-06 09:47] LABS: Erythropoietin (EPO) 93 mU/mL (4-27)
== END ==
LOC: REG 15:41
PROVIDERS: ATTENDING PHYSICIAN Specialist; FAMILY PHYSICIAN Student in an Organized Health Care Education/Training Program
DX: N18.4 Chronic kidney disease, stage 4 (severe) (principal); I10 Essential (primary) hypertension; E78.00 Pure hypercholesterolemia, unspecified; N17.9 Acute kidney failure, unspecified; N28.9 Disorder of kidney and ureter, unspecified
CPT/HCPCS: 36415; 80069; 82668; 83540; 83550; 85025

== ENCOUNTER → 2024-10-26 14:13 | Outpatient (REF) | payer MEDICARE, OTHER, SELFPAY ==
[2024-10-26 15:16] LABS: % Basophils 0.7 % (0-2); % Eosinophils 1.4 % (0-6); % Immature Granulocytes 0.3 % (0-0.5); % Lymphocytes 24.7 % (20.5-51.1); % Monocytes 4.8 % (1.7-9.3); % Neutrophils 68.1 % (42.2-75.2); Absolute Eosinophils 0.1 10^3/uL (0-0.7); Absolute Lymphocytes 1.5 10^3/uL (1.2-3.4); Absolute Monocytes 0.3 10^3/uL (0.1-0.6); Hematocrit 35.9 % (37.0-47.0); Hemoglobin 11.2 g/dL (12.0-16.0); Mean Corp Hgb Conc. 31.2 g/dL (33.0-37.0); Mean Corpuscular Hgb 25.4 pg (27.0-31.0); Mean Corpuscular Volume 81.4 fL (81.0-99.0); Mean Platelet Volume 9.1 fL (7.4-10.4); Nucleated Red Blood Cells % 0 %; Platelet Count 212 10^3/uL (130-400); Red Blood Cell Count 4.41 10^6/uL (4.20-5.40); Red Cell Dist. Width 18.4 % (11.5-14.5); White Blood Cell Count 5.9 10^3/uL (4.8-10.8)
[2024-10-26 15:47] LABS: Albumin 4.2 g/dl (3.5-5.0); Blood Urea Nitrogen 29 mg/dl (7-17); Calcium 9.1 mg/dl (8.4-10.2); Carbon Dioxide 20 mmol/L (22-30); Chloride 109 mmol/L (98-107); Glucose 202 mg/dl (70-99); Phosphorus 3.5 mg/dl (2.5-4.5); Potassium 4.1 mmol/L (3.5-5.1); Sodium 140 mmol/L (135-145); eGFR 41.31
[2024-10-26 16:55] LABS: Protein/creatinine Ratio 0.5; Urine Protein 51 mg/dl
[2024-10-26 17:15] LABS: Microalbumin, Random Urine 26.1 mg/dl (0.6-1.7); Microalbumin/creatinine Ratio 259.2 mg/g
[2024-10-28 12:07] LABS: Intact PTH 131.5 pg/ml (13.6-85.8)
== END ==
LOC: REG 14:13
PROVIDERS: ATTENDING PHYSICIAN Specialist; FAMILY PHYSICIAN Student in an Organized Health Care Education/Training Program
DX: N18.4 Chronic kidney disease, stage 4 (severe) (principal)
CPT/HCPCS: 36415; 80069; 82043; 82570; 83970; 84156; 85025

== ENCOUNTER → 2025-03-06 09:45 | Outpatient (REF) | payer MEDICARE, OTHER, SELFPAY ==
[2025-03-06 10:56] LABS: Hematocrit 34.5 % (37.0-47.0); Hemoglobin 10.2 g/dL (12.0-16.0); Mean Corp Hgb Conc. 29.6 g/dL (33.0-37.0); Mean Corpuscular Volume 78.6 fL (81.0-99.0); Nucleated Red Blood Cells % 0 %; Platelet Count 270 10^3/uL (130-400); Red Cell Dist. Width 17.6 % (11.5-14.5)
[2025-03-06 11:20] LABS: Iron 67 ug/dl (37-170)
[2025-03-06 11:30] LABS: Total Iron Binding Capacity 408 ug/dl (265-497)
[2025-03-06 11:46] LABS: Glycohemoglobin (HgbA1c) 7.3 % (4.0-5.6)
[2025-03-06 11:58] LABS: Ferritin 8.0 ng/ml (11.1-264.0)
== END ==
LOC: REG 09:45
PROVIDERS: ATTENDING PHYSICIAN Student in an Organized Health Care Education/Training Program
DX: E11.9 Type 2 diabetes mellitus without complications (principal); Z86.39 Personal history of other endocrine, nutritional and metabolic disease
CPT/HCPCS: 36415; 82728; 83036; 83540; 83550; 85025

== ENCOUNTER 2025-04-02 13:42 | Outpatient (RCR) | payer MEDICARE, OTHER, SELFPAY ==
[2025-03-26] MEDS: INJECTAFER 265 MG IV (11:30)
[2025-03-26 12:03] VITALS: BP 129/62
[2025-03-26 12:15] VITALS: BP 100/60
[2025-04-02 13:54] VITALS: BP 142/56
[2025-04-02] MEDS: INJECTAFER 265 MG IV (14:11)
[2025-04-02 15:00] VITALS: BP 120/64
== END 2025-04-03 08:50 | disposition home or self-care (01) ==
LOC: OID 13:42
PROVIDERS: ATTENDING PHYSICIAN Student in an Organized Health Care Education/Training Program
DX: R59.0 Localized enlarged lymph nodes (principal); D50.9 Iron deficiency anemia, unspecified (principal); N18.4 Chronic kidney disease, stage 4 (severe)
CPT/HCPCS: 96365; J1439

== ENCOUNTER → 2025-04-03 14:29 | Outpatient (REF) | payer MEDICARE, OTHER, SELFPAY ==
[2025-04-03 15:52] LABS: Microalb - Urine Creatinine 82.400 mg/dl
[2025-04-03 16:05] LABS: Hematocrit 36.8 % (37.0-47.0); Hemoglobin 10.7 g/dL (12.0-16.0)
[2025-04-03 16:13] LABS: Microalbumin, Random Urine 25.0 mg/dl (0.6-1.7)
[2025-04-03 16:18] LABS: Calcium 9.3 mg/dl (8.4-10.2)
[2025-04-04 09:30] LABS: Blood Urea Nitrogen 24 mg/dl (7-17); Carbon Dioxide 21 mmol/L (22-30); Chloride 109 mmol/L (98-107); Glucose 172 mg/dl (70-99); Potassium 3.9 mmol/L (3.5-5.1); Sodium 139 mmol/L (135-145); eGFR 34.79
== END ==
LOC: REG 14:29
PROVIDERS: ATTENDING PHYSICIAN Specialist; FAMILY PHYSICIAN Student in an Organized Health Care Education/Training Program
DX: I10 Essential (primary) hypertension (principal); N18.32 Chronic kidney disease, stage 3b
CPT/HCPCS: 36415; 80048; 82043; 82570; 83970; 84156; 85014; 85018

== ENCOUNTER 2025-04-29 14:26 | Emergency (ER) | payer MEDICARE, OTHER, SELFPAY ==
[2025-04-29 14:27] VITALS: BP 172/108
[2025-04-29 17:09] VITALS: BP 190/94; BMI 38.8
[2025-04-29 17:29] LABS: Hematocrit 39.0 % (37.0-47.0); Hemoglobin 12.9 g/dL (12.0-16.0); Mean Corp Hgb Conc. 33.1 g/dL (33.0-37.0); Mean Corpuscular Volume 84.4 fL (81.0-99.0); Nucleated Red Blood Cells % 0 %; Platelet Count 215 10^3/uL (130-400); Red Cell Dist. Width 21.3 % (11.5-14.5)
[2025-04-29 17:47] LABS: ALT (SGPT) 14 U/L (0-35); AST (SGOT) 18 U/L (14-36); Albumin 4.3 g/dl (3.5-5.0); Alkaline Phosphatase 104 U/L (38-126); Blood Urea Nitrogen 23 mg/dl (7-17); Calcium 9.2 mg/dl (8.4-10.2); Carbon Dioxide 25 mmol/L (22-30); Chloride 102 mmol/L (98-107); Estimated Creatinine Clearance 37 ml/min; Glucose 108 mg/dl (70-99); Lipase 48 U/L (23-300); Potassium 4.4 mmol/L (3.5-5.1); Sodium 134 mmol/L (135-145); Total Protein 7.3 g/dl (6.3-8.2); eGFR 41.31
[2025-04-29] MEDS: NSS 500 IV (18:15)
--- NOTE | 2025-04-29 21:17 | ED.GENMED ---
History of Present Illness
General
Chief Complaint: Abdominal Pain
Source: patient and spouse
Exam Limitations: none
Time Seen by Provider: 04/29/25 17:41
Nursing documentation reviewed up to this point in time: agreed with
History of Present Illness
History of Present Illness:
79-year-old female past medical historyy of hypertension hyperlipidemia, CKD presenting to the emergency department today with concerns of what she believes is a hernia to her right upper abdomen that she has been intermittently reducing over the
past few months. Has seen her outpatient doctors about this. She claims that today the seem to be unable to be reduced for a few hours but found her to come to the ER. It has since been reduced but has had some ongoing pain.
Past History
Past History
ED Past Medical History: HTN, NIDDM, Renal failure and Other (Chronic renal disease)
ED Past Surgical History: Cholecystectomy
Social History
Tobacco: Non-smoker
Alcohol: None
Drug: Marijuana
Personal:
Living: with family
Employment: Retired
Review of Systems
Review of Systems
Allergies reviewed?: Yes
All Other Systems: ROS reviewed and negative except as documented in HPI and ROS
Phy Exam
Physical Exam
Physical Exam:
GENERAL: Alert , in no apparent distress
EYE: pupils equal and reactive
NECK: Supple, no significant adenopathy.
ENT: o/p clr, mmm.
CARDIAC: Regular rate and rhythm .
LUNGS: Clear breath sounds bilaterally, no acute respiratory distress, no wheezes/rales/rhonchi
ABDOMEN: Vague discomfort of the right upper quadrant of the abdomen otherwise soft, without focal tenderness, no r/g, no cvat
NEUROLOGICAL: Alert and oriented, no focal neuro deficits
SKIN: Warm and dry, skin intact.
MUSCULOSKELETAL: No edema, well perfused.
PSYCH: Normal and appropriate interaction.
Course
Orders/Labs/Results
Orders:
Orders
04/29/25 17:23
Complete Blood Count/With Diff Urgent
Comprehensive Metabolic Panel Urgent
Lipase Urgent
04/29/25 17:53
CT Abd/Pel (IV only)-DH only Urgent
Comment:
Reason For Exam: right sided abd paoin
04/29/25 17:58
0.9% Sodium Chloride 500 ml [Nss] 500 ml IV BOLUS
04/29/25 19:44
Lactic Acid Urgent
Abnormal Lab Results
04/29/25
17:23
RDW 21.3 H %
(11.5-14.5)
Abs Immat Gran (auto) 0.1 H 10^3/uL
(0-0.05)
Absolute Neuts (auto) 7.8 H 10^3/uL
(1.4-6.5)
Absolute Monos (auto) 0.7 H 10^3/uL
(0.1-0.6)
Immature Gran % 0.6 H %
(0-0.5)
Lymphocytes % 16.8 L %
(20.5-51.1)
Sodium 134 L mmol/L
(135-145)
BUN 23 H mg/dl
(7-17)
Creatinine 1.3 H mg/dL
(0.6-1.0)
Glucose 108 H mg/dl
(70-99)
04/29/25 17:23
04/29/25 17:23
Vital Signs
Initial and Last Documented VS:
Initial Vital Signs
Temp Pulse Resp BP Pulse Ox
97.7 F 109 15 172/108 97
04/29/25 14:27 04/29/25 14:27 04/29/25 14:27 04/29/25 14:27 04/29/25 14:27
Last Documented Vital Signs
Temp Pulse Resp BP Pulse Ox
97.7 F 101 18 175/80 94
04/29/25 14:27 04/29/25 21:26 04/29/25 21:26 04/29/25 21:26 04/29/25 21:26
MDM/Problems Addressed
MDM/Problems Addressed:
79-year-old female past medical historyy of hypertension hyperlipidemia, CKD presenting to the emergency department today with concerns of what she believes is a hernia to her right upper abdomen that she has been intermittently reducing over the
past few months. Has seen her outpatient doctors about this. She claims that today the seem to be unable to be reduced for a few hours but found her to come to the ER. It has since been reduced but has had some ongoing pain. On arrival she was
tachycardic but improving without specific treatment. Labs without specific acute changes and renal function improved from baseline. CT scan was performed that did not show any emergent findings other than potential previous fatty hernia case was
discussed with general surgery, Dr. Barragan that does not believe that the CT findings of the omental infarction is consistent with any emergent process. She was advised for close outpatient follow-up. Incidental findings of renal lesion was
explained to the patient for follow-up.
*Pulse Oximetry
SaO2: 96
Oxygen Mode of Delivery: Room air
Patient hypoxic: no (94)
*Critical Care Note
Total Time (30-74mins, 75-104mins- exclusive of procedures): Not Applicable
ED Attending Note
-
Portions of this chart may have been created with voice recognition software.� Occasional wrong word or��sound alike� substitutions may have occurred due to the inherent limitations of voice recognition software.
Discharge Plan
Departure
Patient Disposition: Home (Routine Discharge)
Date of Disposition: 04/29/25
Time of Disposition: 21:18
Patient with high blood pressure during this ER visit?: No
Condition: Good
Covid-19: Not Applicable
Discharge Problem:
Abdominal pain
Instructions: Abdominal Pain
Prescriptions:
No Action
tramadol 50 MG tablet
50 mg PO Q6H
nitroglycerin 0.4 MG tablet, sublingual
0.4 mg sublingual [id number] PRN (Reason: chest pain)
albuterol sulfate [Ventolin HFA] 90 MCG/PUFF HFA aerosol inhaler
2 puff inhalation R Q4HPRN PRN (Reason: wheezing)
levothyroxine 137 MCG tablet
137 mcg PO DAILY
amlodipine 5 MG tablet
5 mg PO DAILY
ropinirole 2 MG tablet
2 mg PO HS
rosuvastatin 20 MG tablet
20 mg PO DAILY
lidocaine 4 % Adhesive Patch,Medicated
4 patch TOPICAL HS
Patient Comments:
08/08/24: 1 on R shoulder, 1 on R upper arm, 2 on back
insulin lispro [Humalog U-100 Insulin] 100 unit/mL Solution
1 sliding scale dose SC AC
Patient Comments:
08/18/24: patient states she takes 1-2 units per dose
duloxetine 20 mg Capsule,Delayed Release(Dr/Ec)
20 mg PO DAILY
PreserVision AREDS 4,296 mcg-226 mg-90 mg Capsule
1 cap PO DAILY
diclofenac sodium 1 % Gel
2 g TOPICAL DAILYPRN PRN (Reason: right shoulder)
dapagliflozin propanediol [Farxiga] 10 mg Tablet
10 mg PO DAILY
ondansetron 4 mg tablet,disintegrating
4 mg PO Q8HPRN PRN (Reason: nausea and vomiting)
acetaminophen 650 mg Tablet Extended Release
1,000 mg PO TID Qty: 0 0RF
insulin glargine [Basaglar KwikPen U-100 Insulin] 100 unit/mL (3 mL) Insulin Pen
22 unit SC BID Qty: 0 0RF
Patient Comments:
08/18/24: patients states she took 22 units today but normally takes 44 units per dose
bumetanide 1 mg tablet
1 mg PO MOWEFR@0800 Qty: 30 0RF
Referrals:
Racquel Srivastava MD [Family Provider, Internal Medicine]
Edgar Barragan MD [Active, Surgical] - Follow up in 5-7 days
Activity Restrictions/Additional Instructions:
You came to the emergency department today with concerns of potential hernia. Here due to reassuring assessment. Please follow-up closely with your outpatient team as well as general surgery. Return for any worsening, new or concerning symptoms.
You also had an incidental finding in your kidney please follow-up for outpatient monitoring of this.
Interventions
Interventions:
*Risk Screen - Suicide Last Done: 04/29/25 14:27
*General Assessment Last Done: 04/29/25 14:27
*Neglect/Abuse Screening Last Done: 04/29/25 14:27
*ED- Fall Risk Assessment Last Done: 04/29/25 21:21
*ED COVID-19 Vaccine History Last Done: 04/29/25 14:27
*ED Influenza Vaccine History Last Done: 04/29/25 14:27
*Nursing Disposition Last Done: 04/29/25 21:21
GJ-Srwkvb-Svtifzpabs Assessment Last Done: 04/29/25 17:09
Discharge Date and Time
Discharge Date/Time: 04/29/25 21:35
Print Language: FRENCH
[2025-04-29 21:26] VITALS: BP 175/80
== END 2025-04-29 21:35 | disposition home or self-care (01) ==
LOC: EMR 14:26
PROVIDERS: Emergency Medicine; Physician Assistant; EMERGENCY PHYSICIAN Student in an Organized Health Care Education/Training Program; FAMILY PHYSICIAN Student in an Organized Health Care Education/Training Program
DX: R10.11 Right upper quadrant pain (principal); E11.22 Type 2 diabetes mellitus with diabetic chronic kidney disease; I12.9 Hypertensive chronic kidney disease with stage 1 through stage 4 chronic kidney disease, or unspecified chronic kidney disease; N18.9 Chronic kidney disease, unspecified; E78.5 Hyperlipidemia, unspecified; Z90.49 Acquired absence of other specified parts of digestive tract
CPT/HCPCS: 96360; 99284; 74177; 80053; 83605; 83690; 85025; Q9967

== ENCOUNTER → 2025-05-04 09:50 | Outpatient (REF) | payer MEDICARE, OTHER, SELFPAY ==
[2025-05-04 11:58] LABS: Iron 84 ug/dl (37-170)
[2025-05-04 12:09] LABS: Total Iron Binding Capacity 284 ug/dl (265-497)
[2025-05-04 12:36] LABS: Ferritin 280.0 ng/ml (11.1-264.0)
== END ==
LOC: REG 09:50
PROVIDERS: ATTENDING PHYSICIAN Student in an Organized Health Care Education/Training Program
DX: D50.9 Iron deficiency anemia, unspecified (principal)
CPT/HCPCS: 36415; 82728; 83540; 83550